=== PATIENT | male | born 2000 | race American Indian/Alaskan Native ===

== ENCOUNTER 2018-02-23 08:52 | Inpatient (IN) | payer OTHER ==
[2018-02-23] MEDS ORDERED: NACL 0.9% 1000 ML 1,000 ML IV ONE ×4 (09:06→15:05)
[2018-02-23 09:28] LABS: Hematocrit 40.8 % (35.5-45.6); Hemoglobin 13.9 gm/dl (11.8-15.2); Mean Corpuscular HGB Conc 34 % (32-34); Mean Corpuscular Hemoglobin 29 pg (28-32); Mean Corpuscular Volume 86 fl (84-94); Platelet Count 319 K/mm3 (140-440); Red Blood Count 4.76 M/mm3 (3.65-5.03); Red Cell Distribution Width 13.8 % (13.2-15.2)
[2018-02-23 09:44] LABS: Alanine Aminotransferase 9 units/L (7-56); Albumin 3.7 g/dL (3.9-5); BUN/Creatinine Ratio 18; Blood Urea Nitrogen 16 mg/dL (9-20); Calcium 9.9 mg/dL (8.4-10.2); Hemolysis Index 7
[2018-02-23] MEDS ORDERED: PEPCID IV ONE (10:24)
[2018-02-23] MEDS ORDERED: DILAUDID IV ONE ×2 (10:24→15:02)
[2018-02-23] MEDS ORDERED: ZOFRAN IV ONE (10:24)
--- NOTE | 2018-02-23 10:26 | Emergency Department Report ---
Blank Doc - Documentation Documentation: Patient is a 17-year-old [place] male who is status 4 days status post appendectomy who states that he's had increased pain. Patient is vomited approximately 10 times over the last 24 hours and has diffuse abdominal pain. Patient's mother states he has had not had a fever has been no diarrhea. On focused physical exam patient does have abdominal tenderness diffusely with some mild guarding. Patient's who removed to a treatment room for IV fluids labs were checked and we will have to repeat the scan the patient.
--- NOTE | 2018-02-23 11:26 | Emergency Department Report ---
ED Abdominal Pain HPI - General Chief Complaint: Abdominal Pain Stated Complaint: POST SURGERY COMPLICATIONS Time Seen by Provider: 02/23/18 10:24 Source: patient Mode of arrival: Ambulatory Limitations: No Limitations - History of Present Illness Initial Comments: This is a 17-year-old male brought by mother nontoxic, well nourished in appearance, no acute signs of distress presents to the ED with c/o of nausea and vomiting and abdominal pain 5 days. Mother stated that patient had surgery 5 days ago for appendectomy. Patient describes abdominal pain as cramping and aching with level of 8/10 diffuse. Patient stated symptoms of vomiting worsened last night. Patient denies chest pain, short of breath, fever , chills, headache, stiff neck, numbness or tingling. Patient denies any diarrhea or constipation. Patient denies any recent travels. Patient denies any allergies or PMH. MD Complaint: abdominal pain -: days(s) (5) Location: diffuse Radiation: none Migration to: no migration Severity: mild Severity scale (0 -10): 8 Quality: cramping, aching Consistency: constant Improves With: nothing Worsens With: nothing Associated Symptoms: nausea, vomiting. denies: diarrhea, fever, chills, constipation, dysuria, hematemesis, hematochezia, melena, hematuria, anorexia, syncope - Related Data Home Medications Medication Instructions Recorded Confirmed Last Taken No Known Home Medications [No 02/19/18 02/23/18 Unknown Reported Home Medications] Allergies Allergy/AdvReac Type Severity Reaction Status Date / Time No Known Allergies Allergy Verified 02/23/18 09:06 ED Review of Systems ROS: Stated complaint: POST SURGERY COMPLICATIONS Other details as noted in HPI Constitutional: denies: chills, fever Eyes: denies: eye pain, eye discharge, vision change ENT: denies: ear pain, throat pain Respiratory: denies: cough, shortness of breath, wheezing Cardiovascular: denies: chest pain, palpitations Endocrine: no symptoms reported Gastrointestinal: abdominal pain, nausea, vomiting. denies: diarrhea, constipation Genitourinary: denies: urgency, dysuria Musculoskeletal: denies: back pain, joint swelling, arthralgia Skin: denies: rash, lesions Neurological: denies: headache, weakness, paresthesias Psychiatric: denies: anxiety, depression Hematological/Lymphatic: denies: easy bleeding, easy bruising ED Past Medical Hx - Past Medical History Previous Medical History?: No - Surgical History Past Surgical History?: Yes Hx Appendectomy: Yes - Social History Smoking Status: Never Smoker - Medications Home Medications: Home Medications Medication Instructions Recorded Confirmed Last Taken Type No Known Home Medications [No 02/19/18 02/23/18 Unknown History Reported Home Medications] ED Physical Exam - General Limitations: No Limitations General appearance: alert, in no apparent distress - Head Head exam: Present: atraumatic, normocephalic - Eye Eye exam: Present: normal appearance Pupils: Present: normal accommodation - ENT ENT exam: Present: normal exam, mucous membranes moist - Neck Neck exam: Present: normal inspection, full ROM. Absent: tenderness, meningismus, lymphadenopathy - Respiratory Respiratory exam: Present: normal lung sounds bilaterally. Absent: respiratory distress, wheezes, rales, rhonchi, stridor, chest wall tenderness, accessory muscle use, decreased breath sounds, prolonged expiratory - Cardiovascular Cardiovascular Exam: Present: regular rate, normal rhythm, normal heart sounds. Absent: irregular rhythm, systolic murmur, diastolic murmur, rubs, gallop - GI/Abdominal GI/Abdominal exam: Present: soft, tenderness (diffuse but mostly in the surgical site area with 3 laparoscopic incisions. No redness, cellulitis, or abscess noted. Well healing. ), normal bowel sounds. Absent: distended, guarding, rebound, rigid, diminished bowel sounds - Expanded GI/Abdominal Exam Expanded GI/Abdominal exam: Absent: psoas sign, obturator sign, heel tap sign, Landers's sign, Rovsing's sign, tenderness at Mcburney's Point, ascites - Rectal Rectal exam: Present: deferred - Extremities Exam Extremities exam: Present: normal inspection, full ROM, normal capillary refill - Back Exam Back exam: Present: normal inspection, full ROM - Neurological Exam Neurological exam: Present: alert, oriented X3, normal gait - Psychiatric Psychiatric exam: Present: normal affect, normal mood - Skin Skin exam: Present: warm, dry, intact, normal color. Absent: rash ED Course Vital Signs 02/23/18 02/23/18 02/23/18 09:02 11:01 12:18 Temperature 98.5 F Pulse Rate 105 H 83 Respiratory 20 18 12 Rate Blood Pressure 148/98 Blood Pressure 149/87 [Left] O2 Sat by Pulse 96 99 Oximetry 08/08/18 08/08/18 16:28 16:30 Temperature 98.9 F Pulse Rate 59 L Respiratory 18 Rate Blood Pressure 142/84 Blood Pressure [Left] O2 Sat by Pulse 100 Oximetry - Reevaluation(s) Reevaluation #1: 02/23/18 11:26 Patient is speaking in full sentences with no signs of distress noted. - Consultations Consultation #1: 02/23/18 11:26 Patient has been consulted with Terry Dhillon about patient history, physical exam, and labs and examined and screened patient and agrees to ED plan. Consultation #2: 02/23/18 14:20 Patient was consulted with Dr. Christiansen (General Surgery) about patient CT results and labs. Mother requested to see another surgeon. As oer Dr. Blair is okay with him. Consultation #3: 02/23/18 14:25 Patient was consulted with Maru Vee (general surgeon) about patient history , physical exam, and CT/Labs findings and accepts patient to her services. Asked to have patient on NPO with NG low suction. Asked to have patient admitted with hospitalist. 02/23/18 14:27 Dr. Mata was consulted and admitted to his services. Bridge orders to 3B surgical floor to be put in. ED Medical Decision Making - Lab Data Result diagrams: 02/23/18 09:11 02/23/18 09:11 - Medical Decision Making This is a 17-year-old male that presents with partial small bowel obstruction and postoperative abscess. Patient is stable and was examined by me and Dr. Lira. CT obtained and dictated by radiologist. Patient is notified of the CT results with no questions noted by the patient. Patient is admitted with Dr. Mata and consulted with Dr. Lemons. Also, Dr. Blair was made aware of the request and patient being in the ED with these findings. Patient was put on NPO and NG low suction intermittent. Patient was started on Zosyn IV. Labs obtained. At time of admission, the patient does not seem toxic or ill in appearance. No acute signs of distress noted. Patient agrees to admission treatment plan of care. No further questions noted by the patient. Critical care attestation.: If time is entered above; I have spent that time in minutes in the direct care of this critically ill patient, excluding procedure time. ED Disposition Clinical Impression: Small bowel obstruction Postoperative abscess Qualifiers: Encounter type: initial encounter Qualified Code(s): T81.4XXA - Infection following a procedure, initial encounter Abdominal pain Qualifiers: Abdominal location: generalized Qualified Code(s): R10.84 - Generalized abdominal pain Nausea and vomiting Qualifiers: Vomiting type: unspecified Vomiting Intractability: non-intractable Qualified Code(s): R11.2 - Nausea with vomiting, unspecified Disposition: DC-09 OP ADMIT IP TO THIS HOSP Is pt being admited?: Yes Condition: Stable
[2018-02-23 11:55] LABS: Basophils % (Manual) 0 % (0.0-1.8); Eosinophils % (Manual) 0 % (0.0-4.3); Platelet Estimate Cons; RBC Morphology Normal; Total Cells Counted 100
--- NOTE | 2018-02-23 14:02 | Cat Scan Report ---
CT ABDOMEN PELVIS WITH CONTRAST: HISTORY: abdominal pain, recent appendectomy. COMPARISON: 02/19/18. TECHNIQUE: Helical CT in 1.25mm intervals following IV contrast. Sagittal and coronal reconstructions. FINDINGS: Lung bases: Normal. Liver: Normal. Biliary system: Slightly dense fluid is present in the gallbladder consistent with vicarious excretion of IV contrast into the biliary system. No obvious gallstones or biliary dilatation. Pancreas: Normal. Spleen: Normal. Kidneys/ureters/bladder: Normal. Adrenal glands: Normal. Aorta: Normal. Intestines: Multiple dilated loops of proximal small bowel have developed since the previous exam. It is unclear if this represents postoperative ileus or partial obstruction. I favor a partial small bowel obstruction. There is a small amount of free air along the anterior abdominal wall which is probably secondary to recent surgery. Appendix: Appendectomy changes. Ascites: There is medium ascites throughout the abdomen which has increased since the previous exam. No oral contrast was administered which limits this exam. There appear to be at least 2 fluid collections in the abdomen. A fluid collection in the right lower quadrant containing gas and debris appears to be separate from the colon measuring 5.6 x 3.9 cm. This is in the vicinity of the recent surgery and may represent a postoperative abscess. There is also a more simple appearing fluid collection between the rectum and the bladder measuring 10 x 7 cm. Adenopathy: None. Musculoskeletal: Normal. IMPRESSION: Recent appendectomy changes are identified. There appear to be at least 2 collections in the right lower quadrant and pelvis as described which may represent postoperative abscesses. Consider repeat examination with oral contrast to further differentiate these structures from bowel loops. Dilated loops of proximal small bowel have developed suggesting partial small bowel obstruction. Ascites.
[2018-02-23] MEDS ORDERED: ZOSYN/NS 4.5GM/100ML 4.5 GM/100 ML VIAL IV SCH (15:00)
--- NOTE | 2018-02-23 15:35 | Consultation ---
History of Present Illness Consult date: 02/23/18 Chief complaint: abd pain, n/v - History of present illness History of present illness: 17-year-old male with past surgical history of laparoscopic appendectomy on by Dr. Blair who presented to the emergency room with complaints of persistent nausea and vomiting for the past 4 days. The patient also complains of right lower quadrant soreness since the day of surgery which has gotten worse. The pain does not radiate, however the patient cannot characterize the pain any further. Per his mother who is at the bedside, the patient has been having nonbilious, non-bloody emesis for the past several days. He tried to eat after surgery, however has not had much of an appetite. He has also been having diarrhea. The patient states his last bowel movement was this morning and was loose. He has been having flatus. No fevers, chills. No chest pain, shortness of breath. He does c/o discomfort on urination. The family requests surgical consultation with alternative physician. NGT placed in ER yielded 800cc of dark green drainage. Pt states his pain has reduced to 3/10 from 8/10 and he feels better after NGT placement. Past History Past Medical History: No medical history Past Surgical History: appendectomy Social history: no significant social history Family history: no significant family history Medications and Allergies Allergies Allergy/AdvReac Type Severity Reaction Status Date / Time No Known Allergies Allergy Verified 02/23/18 09:06 Home Medications Medication Instructions Recorded Confirmed Last Taken Type No Known Home Medications [No 02/19/18 02/19/18 Unknown History Reported Home Medications] Active Meds: Active Medications Piperacillin Sod/Tazobactam Sod (Zosyn/Ns 4.5gm/100ml) 4.5 gm in 100 mls @ 200 mls/hr IV ONCE VIRAJ Sodium Chloride (Nacl 0.9% 1000 Ml) 1,000 mls @ 125 mls/hr IV ONCE ONE Stop: 02/23/18 23:04 Morphine Sulfate (Morphine) 2 mg IV Q4H PRN PRN Reason: Pain, Moderate (4-6) Review of Systems All systems: negative (10 pt ROS performed and negative except for that listed in HPI) Exam Vital Signs Temp Pulse Resp BP Pulse Ox 98.5 F 105 H 20 148/98 96 02/23/18 09:02 02/23/18 09:02 02/23/18 09:02 02/23/18 09:02 02/23/18 09:02 Narrative exam: Gen: AAOx3. appears tired. NAD CV: S1, S2+ Resp: even an unlabored. CTAB, no w/r/r Abd: soft, mildly distended, tympanitic, decreased bowel sounds. Abdominal incisions are c/d/i. Minimal suprapubic discomfort on palpation. Ext: no c/c/e Results - Labs 02/23/18 09:11 02/23/18 09:11 Abnormal lab results 02/23/18 02/23/18 Range/Units 09:11 09:11 Seg Neuts % (Manual) 82.0 H (40.0-70.0) % Lymphocytes % (Manual) 12.0 L (13.4-35.0) % Lymphocytes # (Manual) 1.1 L (1.2-5.4) K/mm3 Sodium 136 L (137-145) mmol/L Chloride 91.4 L (98-107) mmol/L Glucose 155 H (75-100) mg/dL Albumin 3.7 L (3.9-5) g/dL Diabetes panel 02/23/18 Range/Units 09:11 Sodium 136 L (137-145) mmol/L Potassium 4.0 (3.6-5.0) mmol/L Chloride 91.4 L (98-107) mmol/L Carbon Dioxide 30 (22-30) mmol/L BUN 16 (9-20) mg/dL Creatinine 0.9 (0.8-1.5) mg/dL Glucose 155 H (75-100) mg/dL Calcium 9.9 (8.4-10.2) mg/dL AST 13 (5-40) units/L ALT 9 (7-56) units/L Alkaline Phosphatase 73 (35-129) units/L Total Protein 8.1 (6.3-8.2) g/dL Albumin 3.7 L (3.9-5) g/dL Calcium panel 02/23/18 Range/Units 09:11 Calcium 9.9 (8.4-10.2) mg/dL Albumin 3.7 L (3.9-5) g/dL Pituitary panel 02/23/18 Range/Units 09:11 Sodium 136 L (137-145) mmol/L Potassium 4.0 (3.6-5.0) mmol/L Chloride 91.4 L (98-107) mmol/L Carbon Dioxide 30 (22-30) mmol/L BUN 16 (9-20) mg/dL Creatinine 0.9 (0.8-1.5) mg/dL Glucose 155 H (75-100) mg/dL Calcium 9.9 (8.4-10.2) mg/dL Adrenal panel 02/23/18 Range/Units 09:11 Sodium 136 L (137-145) mmol/L Potassium 4.0 (3.6-5.0) mmol/L Chloride 91.4 L (98-107) mmol/L Carbon Dioxide 30 (22-30) mmol/L BUN 16 (9-20) mg/dL Creatinine 0.9 (0.8-1.5) mg/dL Glucose 155 H (75-100) mg/dL Calcium 9.9 (8.4-10.2) mg/dL Total Bilirubin 1.00 (0.1-1.2) mg/dL AST 13 (5-40) units/L ALT 9 (7-56) units/L Alkaline Phosphatase 73 (35-129) units/L Total Protein 8.1 (6.3-8.2) g/dL Albumin 3.7 L (3.9-5) g/dL - Imaging CT scan - abdomen: report reviewed, image reviewed CT scan - pelvis: report reviewed, image reviewed Assessment and Plan 17 yo M with n/v, abd pain s/p laparoscopic appendectomy on 02/19/18, dehydration. CT scan images and radiology report reviewed - pSBO vs ileus. Fluid collections in pelvis and RLQ Plan: 1. admit to hospitalist service 2. NPO, may have a small amount of ice chips, IVF 3. NGT to low continuous suction 4. PPI daily 5. prn pain and nausea control 6. repeat am labs 7. IV zosyn given in ER, do not need to continue antibiotics. Fluid collections are likely post op fluid collection. Patient has not had fevers and has normal WBC count, doubt abscess at this time 8. obstruction series in am 9. DVT ppx Thank you for this consultation, please call with questions or concerns.
[2018-02-23] MEDS ORDERED: ZOFRAN IV PRN ×2 (15:41→23:52)
[2018-02-23 15:56] LABS: Bilirubin,Urine NEG (Negative); Blood,Urine NEG (Negative); Color,Urine Yellow (Yellow); Mucus,Urine FEW /HPF; Urobilinogen,Urine < 2.0 mg/dL (<2.0)
[2018-02-23] MEDS ORDERED: D5W/NS W/KCL 20MEQ 20 MEQ/1,000 ML BAG IV SCH (16:00)
[2018-02-23] MEDS: MORPHINE IV PRN ×3 (18:18→23:56)
--- NOTE | 2018-02-23 23:41 | History and Physical Report ---
History of Present Illness Date of examination: 02/23/18 Date of admission: 02/23/18 15:03 Chief complaint: Chief complaint: Right lower quadrant pain for 4 days Nausea vomiting for 4 days History of present illness: History of present illness: 17-year-old black male with history of recent appendicitis and appendectomy on 02/19/2018 comes in for persistent abdominal pain in the right lower quadrant nausea and vomiting for the past 4 days. Pain is about 8 on a scale of 1-10. Pain is localized to the right lower quadrant. No fever or chills patient had a bowel movement this morning and it was loose. Nasogastric tube placed in the emergency room yielded 800 mL of dark green drainage. Pain improved after nice a gastric tube placement Past History Past Medical History: No medical history Past Surgical History: appendectomy Social history: no significant social history Family history: no significant family history Active Meds: Active Medications Piperacillin Sod/Tazobactam Sod (Zosyn/Ns 4.5gm/100ml) 4.5 gm in 100 mls @ 200 mls/hr IV ONCE VIRAJ Sodium Chloride (Nacl 0.9% 1000 Ml) 1,000 mls @ 125 mls/hr IV ONCE ONE Stop: 02/23/18 23:04 Morphine Sulfate (Morphine) 2 mg IV Q4H PRN PRN Reason: Pain, Moderate (4-6) Review of Systems All systems: negative (10 pt ROS performed and negative except for that listed in HPI) Past History Past Medical History: No medical history Past Surgical History: appendectomy Social history: no significant social history Family history: no significant family history Medications and Allergies Allergies Allergy/AdvReac Type Severity Reaction Status Date / Time No Known Allergies Allergy Verified 02/23/18 09:06 Home Medications Medication Instructions Recorded Confirmed Last Taken Type No Known Home Medications [No 02/19/18 02/23/18 Unknown History Reported Home Medications] Active Meds: Active Medications Piperacillin Sod/Tazobactam Sod (Zosyn/Ns 4.5gm/100ml) 4.5 gm in 100 mls @ 200 mls/hr IV ONCE VIRAJ Potassium Chloride/Dextrose/Sod Cl (D5w/Ns W/Kcl 20meq) 20 meq in 1,000 mls @ 125 mls/hr IV DIRECT VIRAJ Last Admin: 02/23/18 17:40 Dose: 125 mls/hr Morphine Sulfate (Morphine) 2 mg IV Q4H PRN PRN Reason: Pain, Moderate (4-6) Last Admin: 02/23/18 20:51 Dose: 2 mg Ondansetron HCl (Zofran) 4 mg IV Q6H PRN PRN Reason: Nausea And Vomiting Last Admin: 02/23/18 20:53 Dose: 4 mg Pantoprazole Sodium (Protonix) 40 mg IV QDAY VIRAJ Exam - Physical Exam Narrative exam: Patient in slight discomfort - Constitutional Vitals: Temp Pulse Resp BP Pulse Ox 99.0 F 113 H 17 151/91 97 02/23/18 19:43 02/23/18 19:43 02/23/18 19:43 02/23/18 19:43 02/23/18 19:43 General appearance: Present: mild distress, well-nourished - EENT Eyes: Present: PERRL ENT: hearing intact, clear oral mucosa - Neck Neck: Present: supple, normal ROM - Respiratory Respiratory effort: normal Respiratory: bilateral: CTA - Cardiovascular Heart rate: 80 Rhythm: regular Heart Sounds: Present: S1 & S2. Absent: rub, click - Extremities Extremities: no ischemia, pulses intact, pulses symmetrical, No edema Peripheral Pulses: within normal limits - Abdominal General gastrointestinal: Present: soft, non-tender, non-distended, normal bowel sounds Localized gastrointestinal: tender: RLQ, guarding: RLQ Male genitourinary: Present: normal - Rectal Rectal Exam: deferred - Integumentary Integumentary: Present: clear, warm, dry - Musculoskeletal Musculoskeletal: gait normal, strength equal bilaterally - Psychiatric Psychiatric: appropriate mood/affect, intact judgment & insight - Neurologic Neurologic: CNII-XII intact, moves all extremities - Allied Health Allied health notes reviewed: nursing, case management Results - Labs CBC & Chem 7: 02/23/18 09:11 02/23/18 09:11 Labs: Laboratory Last Values WBC 9.4 K/mm3 (4.5-11.0) 02/23/18 09:11 RBC 4.76 M/mm3 (3.65-5.03) 02/23/18 09:11 Hgb 13.9 gm/dl (11.8-15.2) 02/23/18 09:11 Hct 40.8 % (35.5-45.6) 02/23/18 09:11 MCV 86 fl (84-94) 02/23/18 09:11 MCH 29 pg (28-32) 02/23/18 09:11 MCHC 34 % (32-34) 02/23/18 09:11 RDW 13.8 % (13.2-15.2) 02/23/18 09:11 Plt Count 319 K/mm3 (140-440) 02/23/18 09:11 Add Manual Diff Complete 02/23/18 09:11 Total Counted 100 02/23/18 09:11 Seg Neuts % (Manual) 82.0 % (40.0-70.0) H 02/23/18 09:11 Band Neutrophils % 0 % 02/23/18 09:11 Lymphocytes % (Manual) 12.0 % (13.4-35.0) L 02/23/18 09:11 Reactive Lymphs % (Man) 0 % 02/23/18 09:11 Monocytes % (Manual) 6.0 % (0.0-7.3) 02/23/18 09:11 Eosinophils % (Manual) 0 % (0.0-4.3) 02/23/18 09:11 Basophils % (Manual) 0 % (0.0-1.8) 02/23/18 09:11 Metamyelocytes % 0 % 02/23/18 09:11 Myelocytes % 0 % 02/23/18 09:11 Promyelocytes % 0 % 02/23/18 09:11 Blast Cells % 0 % 02/23/18 09:11 Nucleated RBC % Not Reportable 02/23/18 09:11 Seg Neutrophils # Man 7.7 K/mm3 (1.8-7.7) 02/23/18 09:11 Band Neutrophils # 0.0 K/mm3 02/23/18 09:11 Lymphocytes # (Manual) 1.1 K/mm3 (1.2-5.4) L 02/23/18 09:11 Abs React Lymphs (Man) 0.0 K/mm3 02/23/18 09:11 Monocytes # (Manual) 0.6 K/mm3 (0.0-0.8) 02/23/18 09:11 Eosinophils # (Manual) 0.0 K/mm3 (0.0-0.4) 02/23/18 09:11 Basophils # (Manual) 0.0 K/mm3 (0.0-0.1) 02/23/18 09:11 Metamyelocytes # 0.0 K/mm3 02/23/18 09:11 Myelocytes # 0.0 K/mm3 02/23/18 09:11 Promyelocytes # 0.0 K/mm3 02/23/18 09:11 Blast Cells # 0.0 K/mm3 02/23/18 09:11 WBC Morphology Not Reportable 02/23/18 09:11 Hypersegmented Neuts Not Reportable 02/23/18 09:11 Hyposegmented Neuts Not Reportable 02/23/18 09:11 Hypogranular Neuts Not Reportable 02/23/18 09:11 Smudge Cells Not Reportable 02/23/18 09:11 Toxic Granulation Not Reportable 02/23/18 09:11 Toxic Vacuolation Not Reportable 02/23/18 09:11 Dohle Bodies Not Reportable 02/23/18 09:11 Pelger-Huet Anomaly Not Reportable 02/23/18 09:11 Jose Rods Not Reportable 02/23/18 09:11 Platelet Estimate Cons 02/23/18 09:11 Clumped Platelets Not Reportable 02/23/18 09:11 Plt Clumps, EDTA Not Reportable 02/23/18 09:11 Large Platelets Not Reportable 02/23/18 09:11 Giant Platelets Not Reportable 02/23/18 09:11 Platelet Satelliting Not Reportable 02/23/18 09:11 Plt Morphology Comment Not Reportable 02/23/18 09:11 RBC Morphology Normal 02/23/18 09:11 Dimorphic RBCs Not Reportable 02/23/18 09:11 Polychromasia Not Reportable 02/23/18 09:11 Hypochromasia Not Reportable 02/23/18 09:11 Poikilocytosis Not Reportable 02/23/18 09:11 Anisocytosis Not Reportable 02/23/18 09:11 Microcytosis Not Reportable 02/23/18 09:11 Macrocytosis Not Reportable 02/23/18 09:11 Spherocytes Not Reportable 02/23/18 09:11 Pappenheimer Bodies Not Reportable 02/23/18 09:11 Sickle Cells Not Reportable 02/23/18 09:11 Target Cells Not Reportable 02/23/18 09:11 Tear Drop Cells Not Reportable 02/23/18 09:11 Ovalocytes Not Reportable 02/23/18 09:11 Helmet Cells Not Reportable 02/23/18 09:11 [place] Bodies Not Reportable 02/23/18 09:11 Many Rings Not Reportable 02/23/18 09:11 Jossue Cells Not Reportable 02/23/18 09:11 Bite Cells Not Reportable 02/23/18 09:11 Crenated Cell Not Reportable 02/23/18 09:11 Elliptocytes Not Reportable 02/23/18 09:11 Acanthocytes (Spur) Not Reportable 02/23/18 09:11 Rouleaux Not Reportable 02/23/18 09:11 Hemoglobin C Crystals Not Reportable 02/23/18 09:11 Schistocytes Not Reportable 02/23/18 09:11 Malaria parasites Not Reportable 02/23/18 09:11 Demetrio Bodies Not Reportable 02/23/18 09:11 Hem Pathologist Commnt No 02/23/18 09:11 Sodium 136 mmol/L (137-145) L 02/23/18 09:11 Potassium 4.0 mmol/L (3.6-5.0) 02/23/18 09:11 Chloride 91.4 mmol/L (98-107) L 02/23/18 09:11 Carbon Dioxide 30 mmol/L (22-30) 02/23/18 09:11 Anion Gap 19 mmol/L 02/23/18 09:11 BUN 16 mg/dL (9-20) 02/23/18 09:11 Creatinine 0.9 mg/dL (0.8-1.5) 02/23/18 09:11 Estimated GFR > 60 ml/min 02/23/18 09:11 BUN/Creatinine Ratio 18 % 02/23/18 09:11 Glucose 155 mg/dL (75-100) H 02/23/18 09:11 Lactic Acid 1.70 mmol/L (0.7-2.0) 02/23/18 13:38 Calcium 9.9 mg/dL (8.4-10.2) 02/23/18 09:11 Total Bilirubin 1.00 mg/dL (0.1-1.2) 02/23/18 09:11 AST 13 units/L (5-40) 02/23/18 09:11 ALT 9 units/L (7-56) 02/23/18 09:11 Alkaline Phosphatase 73 units/L (35-129) 02/23/18 09:11 Total Protein 8.1 g/dL (6.3-8.2) 02/23/18 09:11 Albumin 3.7 g/dL (3.9-5) L 02/23/18 09:11 Albumin/Globulin Ratio 0.8 % 02/23/18 09:11 Lipase 18 units/L (13-60) 02/23/18 09:11 Urine Color Yellow (Yellow) 02/23/18 15:22 Urine Turbidity Clear (Clear) 02/23/18 15:22 Urine pH 6.0 (5.0-7.0) 02/23/18 15:22 Ur Specific [place] 1.048 (1.003-1.030) H 02/23/18 15:22 Urine Protein 30 mg/dl mg/dL (Negative) 02/23/18 15:22 Urine Glucose (UA) Neg mg/dL (Negative) 02/23/18 15:22 Urine Ketones Neg mg/dL (Negative) 02/23/18 15:22 Urine Blood Neg (Negative) 02/23/18 15:22 Urine Nitrite Neg (Negative) 02/23/18 15:22 Urine Bilirubin Neg (Negative) 02/23/18 15:22 Urine Urobilinogen < 2.0 mg/dL (<2.0) 02/23/18 15:22 Ur Leukocyte Esterase Neg (Negative) 02/23/18 15:22 Urine WBC (Auto) 3.0 /HPF (0.0-6.0) 02/23/18 15:22 Urine RBC (Auto) 5.0 /HPF (0.0-6.0) 02/23/18 15:22 Urine Mucus Few /HPF 02/23/18 15:22 Blood Type O POSITIVE 02/23/18 09:11 Antibody Screen Negative 02/23/18 09:11 - Imaging and Cardiology Imaging and Cardiology: CT abdomen: Recent appendectomy changes are identified 2 collections in the right lower quadrant and pelvis which may represent postoperative abscesses Consider repeat examination with oral contrast to further differentiate the structures from bowel loops Dilated loops of proximal small bowel R Evelinard suggesting partial small bowel obstruction Assessment and Plan Advance Directives: Yes (full code) VTE prophylaxis?: Chemical Plan of care discussed with patient/family: Yes - Patient Problems (1) Postoperative abscess Current Visit: Yes Status: Acute Qualifiers: Encounter type: initial encounter Qualified Code(s): T81.4XXA - Infection following a procedure, initial encounter Plan to address problem: IV Zosyn for now Repeat CAT scan with contrast Surgery consulted (2) Small bowel obstruction Current Visit: Yes Status: Acute Plan to address problem: NG tube for now IV fluids were no (3) DVT prophylaxis Current Visit: Yes Status: Acute Plan to address problem: Lovenox 40 mg subcutaneous daily
[2018-02-23] MEDS ORDERED: SODIUM CHLORIDE FLUSH SYRINGE 10 ML IV PRN (23:52)
[2018-02-23] MEDS ORDERED: TYLENOL PO PRN (23:52)
[2018-02-24] MEDS: ZOSYN/NS 4.5GM/100ML 4.5 GM/100 ML VIAL IV SCH ×4 (00:30→21:30)
[2018-02-24] MEDS: PROTONIX IV SCH ×3 (00:31→21:30)
[2018-02-24] MEDS: DILAUDID IV PRN ×6 (00:35→23:57)
[2018-02-24] MEDS: D5NS 1,000 ML IV SCH ×2 (00:38→20:07)
[2018-02-24] MEDS: ZOFRAN IV PRN ×2 (00:39→10:40)
[2018-02-24] MEDS ORDERED: NACL 0.9% 1,000 ML IR ONE (08:20)
[2018-02-24 08:37] LABS: Hematocrit 35.6 % (35.5-45.6); Mean Corpuscular HGB Conc 34 % (32-34); Mean Corpuscular Hemoglobin 29 pg (28-32); Mean Corpuscular Volume 86 fl (84-94); Platelet Count 274 K/mm3 (140-440); Red Blood Count 4.15 M/mm3 (3.65-5.03); Red Cell Distribution Width 13.8 % (13.2-15.2)
[2018-02-24 08:50] LABS: BUN/Creatinine Ratio 13; Blood Urea Nitrogen 14 mg/dL (9-20); Calcium 8.7 mg/dL (8.4-10.2); Hemolysis Index 3
[2018-02-24] MEDS ORDERED: NACL 0.9% IR SCH (09:00)
[2018-02-24] MEDS ORDERED: LACTATED RINGERS 1,000 ML IV ONE ×2 (10:00→12:30)
[2018-02-24] MEDS ORDERED: PROTONIX IV SCH (10:00)
[2018-02-24 10:31] LABS: Band Neutrophils # (Manual) 1.5 K/mm3; Eosinophils % (Manual) 0 % (0.0-4.3); Total Cells Counted 100
[2018-02-24 10:32] LABS: Anisocytosis 1+; Platelet Estimate Cons
--- NOTE | 2018-02-24 10:45 | Progress Note ---
Assessment and Plan - Patient Problems (1) Abdominal pain Current Visit: Yes Status: Acute Qualifiers: Abdominal location: lower abdomen, unspecified Qualified Code(s): R10.30 - Lower abdominal pain, unspecified Plan to address problem: Patient is stable but showing signs of illness probably secondary to infection. I'm concerned with the increase in the white count and the high fever this morning in addition to his clinical appearance, the fluid collection in pelvis may be an abscess. I spoke with Dr. Song from IR about draining the pelvic collection as well as aspirating if not draining the right lower quadrant collection. Would continue current Abx until culture results are available. Spent a great deal of time talking to the grandmother as well as the mother and patient. The grandmother was very upset about the care her grandson had received. She was upset that he was discharged on the day of surgery. She was upset that he had to be brought back. She is concerned about reddish discoloration in the NG tube. I think her main issue was the immediate discharge after surgery. She made the accusation that he was immediately discharged because he was a black man with no insurance. I explained to her that I was not involved in that part of the care, but I can understand why she would be upset. I explained that we were taking over the care and I'm sorry about the experience that she has had so far. We will work together to get him feeling better. I gave her my business card as well as one to the mother that had my cell phone number on there. I offered that they can call it anytime if you have any issues or concerns. She informed me that she was a prior nurse practitioner. Therefore I asked for her assistance if she should notice some issue or concern, that she let me know about it. She seemed to feel better at this point. During the examination, the grandmother out of the room, the patient told me that he was not comfortable with his grandmother making decisions and wanted to wait until the mother arrived before any final decisions were made. We waited for her to arrive prior to placing an official consult with interventional radiology. He and the mother were in agreement that we should proceed with IR drainage. I have explained the plan as it stands today. I answered all of the questions. They seem to understand his current situation and what the plan is. As he still appears dehydrated, I will bolus him with extra fluid. This was explained to the mother and the patient as well as the grandmother. All were in agreement. I have encouraged him to ambulate. I've given him an incentive spirometer. They also said he knew how to use it. I will reach out to Mr. Ayers (Patient Experience) to let him know what is going on. Time=60min Subjective Date of service: 02/24/18 Patient Reports: Positive: still having pain (especially in lower abdomen that extends to the back. ), no bowel movement, nausea, fever (this AM), other ( Grandmother very upset about the care). Negative: no flatus, vomiting, shortness of breath Objective Vital Signs - 12hr 02/23/18 02/23/18 02/24/18 23:09 23:10 03:29 Temperature 99.7 F H 100.3 F H Pulse Rate 115 H 109 H 104 H Respiratory 17 18 Rate Blood Pressure 154/87 Blood Pressure 146/88 [Left] Blood Pressure [Right] O2 Sat by Pulse 95 95 96 Oximetry 02/24/18 08:00 Temperature 102.3 F H Pulse Rate 118 H Respiratory 20 Rate Blood Pressure Blood Pressure [Left] Blood Pressure 151/91 [Right] O2 Sat by Pulse 94 Oximetry - General physical appearance no distress, other (does appear ill and tired) - Eyes normal occular movement - ENT other (dry mouth and lips) - Respiratory normal respiratory effort, clear to auscultation, other (limited lung expansion) - Abdomen soft, tender (in the lower abdomen and right side. Left side is nontender. No pelvic shake tenderness), bowel sounds hypoactive (minimal ), not distended, guarding, not rigid, surgical scars (C/D/I. minimal skin separation at the RLQ incision site), other (very warm to the touch) - Integumentary no rash, no growths, no abnormal pigmentation - Psychiatric oriented to time, oriented to person, oriented to place, speech is normal, memory intact - Labs 02/24/18 08:21 02/24/18 08:21 Diabetes panel 02/24/18 Range/Units 08:21 Sodium 142 (137-145) mmol/L Potassium 4.0 (3.6-5.0) mmol/L Chloride 102.4 (98-107) mmol/L Carbon Dioxide 26 (22-30) mmol/L BUN 14 (9-20) mg/dL Creatinine 1.1 (0.8-1.5) mg/dL Glucose 146 H (75-100) mg/dL Calcium 8.7 (8.4-10.2) mg/dL Calcium panel 02/24/18 Range/Units 08:21 Calcium 8.7 (8.4-10.2) mg/dL Phosphorus 2.90 (2.5-4.5) mg/dL Pituitary panel 02/24/18 Range/Units 08:21 Sodium 142 (137-145) mmol/L Potassium 4.0 (3.6-5.0) mmol/L Chloride 102.4 (98-107) mmol/L Carbon Dioxide 26 (22-30) mmol/L BUN 14 (9-20) mg/dL Creatinine 1.1 (0.8-1.5) mg/dL Glucose 146 H (75-100) mg/dL Calcium 8.7 (8.4-10.2) mg/dL Adrenal panel 02/24/18 Range/Units 08:21 Sodium 142 (137-145) mmol/L Potassium 4.0 (3.6-5.0) mmol/L Chloride 102.4 (98-107) mmol/L Carbon Dioxide 26 (22-30) mmol/L BUN 14 (9-20) mg/dL Creatinine 1.1 (0.8-1.5) mg/dL Glucose 146 H (75-100) mg/dL Calcium 8.7 (8.4-10.2) mg/dL
[2018-02-24] MEDS: SODIUM CHLORIDE FLUSH SYRINGE 10 ML IV SCH ×2 (10:59→21:30)
[2018-02-24] MEDS ORDERED: TYLENOL ONE (13:56)
[2018-02-24] MEDS ORDERED: XYLOCAINE 1%/ EPI 1:100,000 INFILTRATI ONE (14:04)
[2018-02-24] MEDS ORDERED: VERSED IV ONE ×2 (14:19→14:47)
[2018-02-24] MEDS ORDERED: SUBLIMAZE ONE (14:20)
[2018-02-24] MEDS ORDERED: TYLENOL PO ONE (15:16)
[2018-02-24] MEDS ORDERED: SUBLIMAZE IV ONE (15:47)
--- NOTE | 2018-02-24 16:09 | Post Operative Note ---
Date of procedure: 02/24/18 Pre-op diagnosis: Pelvic fluid collection Post-op diagnosis: same Findings: 260 mL of foul smelling serosanginous fluid (old hematoma) Procedure: CT guided drainage of the pelvic fluid collection with an 8 Fr APD Anesthesia: local (w/ conscious sedation) Surgeon: PERLA LAFLEUR Estimated blood loss: minimal Specimen disposition: to lab Disposition: floor
--- NOTE | 2018-02-24 17:21 | Progress Note ---
Assessment and Plan /Postoperative abscess IV Zosyn for now Surgery consulted s/p CT guided drainage of the pelvic fluid collection today / Small bowel obstruction NG tube for now, IV fluids, monitor BMP Keep NPO / DVT prophylaxis Lovenox 40 mg subcutaneous daily Subjective Date of service: 02/24/18 Interval history: Patient seen and examined s/p CT guided pelvic abscess drainage today c/o abdominal pain Objective - Constitutional Vitals: Vital Signs - 12hr 02/24/18 02/24/18 02/24/18 08:00 08:02 10:40 Temperature 102.3 F H Temperature [ Post-Procedure] Pulse Rate 118 H Pulse Rate [ Intra-Procedure ] Pulse Rate [ Post-Procedure] Pulse Rate [Pre -Procedure] Respiratory 20 20 Rate Respiratory 20 Rate [Abdomen] Respiratory Rate [Intra- Procedure] Respiratory Rate [Post- Procedure] Respiratory Rate [Pre- Procedure] Blood Pressure 151/91 Blood Pressure [Intra- Procedure] Blood Pressure [Post-Procedure ] Blood Pressure [Pre-Procedure] Blood Pressure 151/91 [Right] O2 Sat by Pulse 94 Oximetry O2 Sat by Pulse Oximetry [ Intra-Procedure ] O2 Sat by Pulse Oximetry [Post -Procedure] O2 Sat by Pulse Oximetry [Pre- Procedure] 02/24/18 02/24/18 02/24/18 11:10 13:13 15:28 Temperature 101.6 F H Temperature [ Post-Procedure] Pulse Rate 124 H Pulse Rate [ Intra-Procedure ] Pulse Rate [ Post-Procedure] Pulse Rate [Pre 111 H -Procedure] Respiratory 20 Rate Respiratory Rate [Abdomen] Respiratory Rate [Intra- Procedure] Respiratory Rate [Post- Procedure] Respiratory 25 H Rate [Pre- Procedure] Blood Pressure 143/78 Blood Pressure [Intra- Procedure] Blood Pressure [Post-Procedure ] Blood Pressure 145/73 [Pre-Procedure] Blood Pressure [Right] O2 Sat by Pulse 93 Oximetry O2 Sat by Pulse Oximetry [ Intra-Procedure ] O2 Sat by Pulse Oximetry [Post -Procedure] O2 Sat by Pulse 99 Oximetry [Pre- Procedure] 02/24/18 02/24/18 02/24/18 15:32 15:38 15:43 Temperature Temperature [ Post-Procedure] Pulse Rate Pulse Rate [ 122 H 128 H 119 H Intra-Procedure ] Pulse Rate [ Post-Procedure] Pulse Rate [Pre -Procedure] Respiratory 18 Rate Respiratory Rate [Abdomen] Respiratory 28 H 27 H 22 Rate [Intra- Procedure] Respiratory Rate [Post- Procedure] Respiratory Rate [Pre- Procedure] Blood Pressure Blood Pressure 140/74 142/77 136/69 [Intra- Procedure] Blood Pressure [Post-Procedure ] Blood Pressure [Pre-Procedure] Blood Pressure [Right] O2 Sat by Pulse Oximetry O2 Sat by Pulse 99 96 97 Oximetry [ Intra-Procedure ] O2 Sat by Pulse Oximetry [Post -Procedure] O2 Sat by Pulse Oximetry [Pre- Procedure] 02/24/18 02/24/18 02/24/18 15:48 15:53 15:58 Temperature Temperature [ Post-Procedure] Pulse Rate Pulse Rate [ 122 H 122 H 115 H Intra-Procedure ] Pulse Rate [ Post-Procedure] Pulse Rate [Pre -Procedure] Respiratory Rate Respiratory Rate [Abdomen] Respiratory 23 24 24 Rate [Intra- Procedure] Respiratory Rate [Post- Procedure] Respiratory Rate [Pre- Procedure] Blood Pressure Blood Pressure 142/69 140/73 142/72 [Intra- Procedure] Blood Pressure [Post-Procedure ] Blood Pressure [Pre-Procedure] Blood Pressure [Right] O2 Sat by Pulse Oximetry O2 Sat by Pulse 99 99 99 Oximetry [ Intra-Procedure ] O2 Sat by Pulse Oximetry [Post -Procedure] O2 Sat by Pulse Oximetry [Pre- Procedure] 02/24/18 02/24/18 02/24/18 16:03 16:18 16:30 Temperature Temperature [ 99.7 F H Post-Procedure] Pulse Rate Pulse Rate [ Intra-Procedure ] Pulse Rate [ 116 H 115 H 116 H Post-Procedure] Pulse Rate [Pre -Procedure] Respiratory Rate Respiratory Rate [Abdomen] Respiratory Rate [Intra- Procedure] Respiratory 24 22 21 Rate [Post- Procedure] Respiratory Rate [Pre- Procedure] Blood Pressure Blood Pressure [Intra- Procedure] Blood Pressure 139/77 118/79 143/79 [Post-Procedure ] Blood Pressure [Pre-Procedure] Blood Pressure [Right] O2 Sat by Pulse Oximetry O2 Sat by Pulse Oximetry [ Intra-Procedure ] O2 Sat by Pulse 99 96 96 Oximetry [Post -Procedure] O2 Sat by Pulse Oximetry [Pre- Procedure] 02/24/18 17:00 Temperature Temperature [ Post-Procedure] Pulse Rate Pulse Rate [ Intra-Procedure ] Pulse Rate [ 115 H Post-Procedure] Pulse Rate [Pre -Procedure] Respiratory Rate Respiratory Rate [Abdomen] Respiratory Rate [Intra- Procedure] Respiratory 20 Rate [Post- Procedure] Respiratory Rate [Pre- Procedure] Blood Pressure Blood Pressure [Intra- Procedure] Blood Pressure 165/79 [Post-Procedure ] Blood Pressure [Pre-Procedure] Blood Pressure [Right] O2 Sat by Pulse Oximetry O2 Sat by Pulse Oximetry [ Intra-Procedure ] O2 Sat by Pulse 96 Oximetry [Post -Procedure] O2 Sat by Pulse Oximetry [Pre- Procedure] General appearance: Present: mild distress - EENT Eyes: PERRL, EOM intact ENT: hearing intact, clear oral mucosa Ears: bilateral: normal - Neck Neck: supple, normal ROM - Respiratory Respiratory effort: normal Respiratory: bilateral: CTA - Cardiovascular Rhythm: regular Heart Sounds: Present: S1 & S2. Absent: gallop, rub Extremities: pulses intact, No edema, normal color, Full ROM - Gastrointestinal General gastrointestinal: Present: soft, non-distended, normal bowel sounds, other (drainage in place) - Integumentary Integumentary: clear, warm, dry - Musculoskeletal Musculoskeletal: 1, strength equal bilaterally - Neurologic Neurologic: moves all extremities - Psychiatric Psychiatric: memory intact, appropriate mood/affect, intact judgment & insight - Labs CBC & Chem 7: 02/24/18 08:21 08 08:21 Labs: Abnormal lab results 02/24/18 02/24/18 Range/Units 08:21 08:21 WBC 13.3 H (4.5-11.0) K/mm3 Lymphocytes % (Manual) 7.0 L (13.4-35.0) % Monocytes % (Manual) 11.0 H (0.0-7.3) % Seg Neutrophils # Man 9.0 H (1.8-7.7) K/mm3 Lymphocytes # (Manual) 0.9 L (1.2-5.4) K/mm3 Monocytes # (Manual) 1.5 H (0.0-0.8) K/mm3 Glucose 146 H (75-100) mg/dL - Imaging and cardiology CT scan - abdomen: report reviewed
[2018-02-25] MEDS: DILAUDID IV PRN ×6 (04:08→22:27)
[2018-02-25] MEDS: D5NS 1,000 ML IV SCH (04:15)
[2018-02-25] MEDS: ZOSYN/NS 4.5GM/100ML 4.5 GM/100 ML VIAL IV SCH ×3 (06:08→21:40)
[2018-02-25 07:19] LABS: Basophils % (Auto) 0.1 % (0.0-1.8); Eosinophils # (Auto) 0.3 K/mm3 (0.0-0.4); Eosinophils % (Auto) 1.9 % (0.0-4.3); Hematocrit 31.7 % (35.5-45.6); Hemoglobin 10.5 gm/dl (11.8-15.2); Lymphocytes % (Auto) 6.8 % (13.4-35.0); Mean Corpuscular HGB Conc 33 % (32-34); Mean Corpuscular Hemoglobin 29 pg (28-32); Mean Corpuscular Volume 86 fl (84-94); Monocytes # (Auto) 1.9 K/mm3 (0.0-0.8); Platelet Count 262 K/mm3 (140-440); Red Blood Count 3.68 M/mm3 (3.65-5.03); Red Cell Distribution Width 14.1 % (13.2-15.2)
[2018-02-25 07:40] LABS: BUN/Creatinine Ratio 13; Blood Urea Nitrogen 12 mg/dL (9-20); Calcium 8.4 mg/dL (8.4-10.2); Hemolysis Index 3
[2018-02-25] MEDS: PROTONIX IV SCH ×2 (08:59→21:43)
[2018-02-25] MEDS ORDERED: D5W/0.45% NACL/KCL 20 MEQ 20 MEQ/1,000 ML BAG IV SCH (09:00)
[2018-02-25] MEDS: SODIUM CHLORIDE FLUSH SYRINGE 10 ML IV SCH ×2 (09:02→21:44)
--- NOTE | 2018-02-25 09:36 | Progress Note ---
Assessment and Plan - Patient Problems (1) Abdominal pain Current Visit: Yes Status: Acute Qualifiers: Abdominal location: lower abdomen, unspecified Qualified Code(s): R10.30 - Lower abdominal pain, unspecified Plan to address problem: Pt stable. s/p lap appy (02/19/18 - POD#6); s/p IR drainage of pelvic collection ( 02/24/18 - POD#1) - patient looks better today. Still has some degree of dehydration. Temperature curve is better. Heart rate is better. Based on IR report and microbiology results, patient most likely had been early abscess developing in the pelvis. Re-instructed in IS. Rec: 1) Ambulation 2) May have sips of clears. Cont NGT drainage. 3) Fluid bolus and change fluids to maintenance 4) Cont Abx Time=15min Subjective Date of service: 02/25/18 Patient Reports: Positive: feels better, pain is less (Pressure/pain in pelvic area is much better. No back pain now), flatus (minimal), diarrhea, other (very hungry). Negative: nausea, vomiting Objective Vital Signs - 12hr 02/24/18 02/24/18 02/25/18 22:00 23:57 00:42 Temperature Pulse Rate 114 H Respiratory 18 18 17 Rate Blood Pressure 144/80 Blood Pressure [Right] O2 Sat by Pulse 90 Oximetry 02/25/18 02/25/18 02/25/18 00:49 04:08 04:38 Temperature 99.5 F Pulse Rate Respiratory 18 18 Rate Blood Pressure Blood Pressure [Right] O2 Sat by Pulse Oximetry 02/25/18 02/25/18 02/25/18 04:39 04:40 07:20 Temperature 99.8 F H 98.5 F Pulse Rate 107 H 110 H 105 H Respiratory 17 20 Rate Blood Pressure 139/86 Blood Pressure 144/87 [Right] O2 Sat by Pulse 89 89 94 Oximetry - General physical appearance no distress, no pain, other (looks better and smiling today) - Eyes normal occular movement - Respiratory normal respiratory effort, clear to auscultation, other (shallow breathing - but appears comfortable) - Abdomen soft, not tender, bowel sounds hypoactive, not distended, not guarding, not rigid, surgical scars (C/D/I) - Integumentary no rash, no growths, no abnormal pigmentation - Neurologic normal coordination, normal sensation - Psychiatric oriented to time, oriented to person, oriented to place, speech is normal, memory intact - Labs 02/25/18 07:07 02/25/18 07:07 Diabetes panel 02/25/18 Range/Units 07:07 Sodium 145 (137-145) mmol/L Potassium 3.9 (3.6-5.0) mmol/L Chloride 107.8 H (98-107) mmol/L Carbon Dioxide 26 (22-30) mmol/L BUN 12 (9-20) mg/dL Creatinine 0.9 (0.8-1.5) mg/dL Glucose 130 H (75-100) mg/dL Calcium 8.4 (8.4-10.2) mg/dL Calcium panel 02/25/18 Range/Units 07:07 Calcium 8.4 (8.4-10.2) mg/dL Pituitary panel 02/25/18 Range/Units 07:07 Sodium 145 (137-145) mmol/L Potassium 3.9 (3.6-5.0) mmol/L Chloride 107.8 H (98-107) mmol/L Carbon Dioxide 26 (22-30) mmol/L BUN 12 (9-20) mg/dL Creatinine 0.9 (0.8-1.5) mg/dL Glucose 130 H (75-100) mg/dL Calcium 8.4 (8.4-10.2) mg/dL Adrenal panel 02/25/18 Range/Units 07:07 Sodium 145 (137-145) mmol/L Potassium 3.9 (3.6-5.0) mmol/L Chloride 107.8 H (98-107) mmol/L Carbon Dioxide 26 (22-30) mmol/L BUN 12 (9-20) mg/dL Creatinine 0.9 (0.8-1.5) mg/dL Glucose 130 H (75-100) mg/dL Calcium 8.4 (8.4-10.2) mg/dL
[2018-02-25] MEDS ORDERED: LACTATED RINGERS 1,000 ML IV ONE (10:00)
--- NOTE | 2018-02-25 14:47 | Event Note ---
Date: 02/25/18 routine check - Pt reports that he walked in the halls. Tolerated clears. Has been off suction for 2-3 hours without any issues. Feels well. - Leave NGT off suction unless symptomatic. - sips of clears. - continue ambulating
--- NOTE | 2018-02-25 14:54 | Progress Note ---
Assessment and Plan Sepsis due to intraabdominal abscess: cont abx, follow cx /Postoperative abscess IV Zosyn for now Surgery consulted s/p CT guided drainage of the pelvic fluid collection 02/24/18 / Small bowel obstruction off NG tube suction for now, IV fluids, monitor BMP allow sips of clear liquid / DVT prophylaxis Lovenox 40 mg subcutaneous daily Microbiology 02/23/18 13:38 Peripheral/Venous Blood Culture - Preliminary NO GROWTH AFTER 48 HOURS 02/23/18 13:38 Peripheral/Venous Blood Culture - Preliminary NO GROWTH AFTER 48 HOURS 02/24/18 16:15 Abdomen Surgical Culture - Preliminary Gram Negative Joni Subjective Date of service: 02/25/18 Interval history: Patient seen and examined s/p CT guided pelvic abscess drainage yesterday states abdominal pain improved Objective - Exam Narrative Exam: General appearance: Present: mild distress - EENT Eyes: PERRL, EOM intact ENT: hearing intact, clear oral mucosa Ears: bilateral: normal - Neck Neck: supple, normal ROM - Respiratory Respiratory effort: normal Respiratory: bilateral: CTA - Cardiovascular Rhythm: regular Heart Sounds: Present: S1 & S2. Absent: gallop, rub Extremities: pulses intact, No edema, normal color, Full ROM - Gastrointestinal General gastrointestinal: Present: soft, non-distended, normal bowel sounds, other (drainage in place) - Integumentary Integumentary: clear, warm, dry - Musculoskeletal Musculoskeletal: 1, strength equal bilaterally - Neurologic Neurologic: moves all extremities - Psychiatric Psychiatric: memory intact, appropriate mood/affect, intact judgment & insight - Constitutional Vitals: Vital Signs - 12hr 02/25/18 02/25/18 02/25/18 04:08 04:38 04:39 Temperature 99.8 F H Pulse Rate 107 H Respiratory 18 18 17 Rate Blood Pressure 139/86 Blood Pressure [Right] O2 Sat by Pulse 89 Oximetry 02/25/18 02/25/18 02/25/18 04:40 07:20 10:00 Temperature 98.5 F Pulse Rate 110 H 105 H Respiratory 20 Rate Blood Pressure Blood Pressure 144/87 [Right] O2 Sat by Pulse 89 94 97 Oximetry 02/25/18 12:05 Temperature 99.8 F H Pulse Rate 102 H Respiratory 20 Rate Blood Pressure Blood Pressure 143/71 [Right] O2 Sat by Pulse 99 Oximetry - Labs CBC & Chem 7: 02/25/18 07:07 02/25/18 07:07 Labs: Abnormal lab results 02/25/18 02/25/18 Range/Units 07:07 07:07 WBC 15.5 H (4.5-11.0) K/mm3 Hgb 10.5 L (11.8-15.2) gm/dl Hct 31.7 L (35.5-45.6) % Lymph % (Auto) 6.8 L (13.4-35.0) % Hall % (Auto) 12.0 H (0.0-7.3) % Lymph # 1.0 L (1.2-5.4) K/mm3 Hall # 1.9 H (0.0-0.8) K/mm3 Seg Neutrophils % 79.2 H (40.0-70.0) % Seg Neutrophils # 12.3 H (1.8-7.7) K/mm3 Chloride 107.8 H (98-107) mmol/L Glucose 130 H (75-100) mg/dL
[2018-02-26] MEDS: DILAUDID IV PRN ×5 (01:22→20:22)
[2018-02-26 05:05] LABS: Hematocrit 30.8 % (35.5-45.6); Hemoglobin 10.2 gm/dl (11.8-15.2); Mean Corpuscular HGB Conc 33 % (32-34); Mean Corpuscular Hemoglobin 28 pg (28-32); Mean Corpuscular Volume 86 fl (84-94); Platelet Count 283 K/mm3 (140-440); Red Blood Count 3.58 M/mm3 (3.65-5.03); Red Cell Distribution Width 14.3 % (13.2-15.2)
[2018-02-26 05:20] LABS: BUN/Creatinine Ratio 13; Blood Urea Nitrogen 12 mg/dL (9-20); Calcium 8.8 mg/dL (8.4-10.2); Hemolysis Index 0
[2018-02-26] MEDS: ZOSYN/NS 4.5GM/100ML 4.5 GM/100 ML VIAL IV SCH ×2 (05:56→14:38)
[2018-02-26 07:50] LABS: Band Neutrophils # (Manual) 2.6 K/mm3; Basophils % (Manual) 0 % (0.0-1.8); Total Cells Counted 100
[2018-02-26 07:51] LABS: Anisocytosis Few; Hypochromasia 1+; Ovalocytes Few
[2018-02-26] MEDS: PROTONIX IV SCH (10:34)
[2018-02-26] MEDS: SODIUM CHLORIDE FLUSH SYRINGE 10 ML IV SCH (10:36)
--- NOTE | 2018-02-26 12:37 | Progress Note ---
Assessment and Plan - Patient Problems (1) Abdominal pain Current Visit: Yes Status: Acute Qualifiers: Abdominal location: lower abdomen, unspecified Qualified Code(s): R10.30 - Lower abdominal pain, unspecified Plan to address problem: Secondary to abscess status post surgical correction for appendicitis. (2) Nausea and vomiting Current Visit: Yes Status: Acute Qualifiers: Vomiting type: unspecified Vomiting Intractability: non-intractable Qualified Code(s): R11.2 - Nausea with vomiting, unspecified (3) Postoperative abscess Current Visit: Yes Status: Acute Qualifiers: Encounter type: initial encounter Qualified Code(s): T81.4XXA - Infection following a procedure, initial encounter Plan to address problem: Postoperative abscess sensitive to ESBL patient currently on Rocephin and is sensitive to zosyn. Will place patient on isolation contact at this time. Subjective Date of service: 02/26/18 Principal diagnosis: intra-abdominal abscess Interval history: Patient Hospital course complicated by postsurgical complications. Has NG tube in the nose currently not using it. Patient able to take sips of water and drink juice. He isn't eating candy as well. Had increased gas and small amount of bowel movement last night over the p.m. aspirin course also complicated by the recent microbiology findings of ESBL however is still sensitive to Rocephin. Objective - Constitutional Vitals: Vital Signs - 12hr 02/26/18 02/26/18 02/26/18 01:22 04:32 04:46 Temperature 99.6 F Pulse Rate 107 H Respiratory 18 20 20 Rate Blood Pressure 143/89 Blood Pressure [Right] O2 Sat by Pulse 93 Oximetry 02/26/18 02/26/18 02/26/18 07:17 08:12 08:37 Temperature 99.4 F 99.4 F Pulse Rate 93 H Respiratory 20 20 18 Rate Blood Pressure 136/92 Blood Pressure 139/82 [Right] O2 Sat by Pulse 100 Oximetry 02/26/18 02/26/18 08:42 09:03 Temperature Pulse Rate Respiratory 18 Rate Blood Pressure Blood Pressure [Right] O2 Sat by Pulse 95 Oximetry General appearance: Present: no acute distress, well-nourished, other (NG tube.) - EENT Eyes: PERRL, EOM intact ENT: hearing intact, clear oral mucosa Ears: bilateral: normal - Neck Neck: supple, normal ROM - Respiratory Respiratory effort: normal Respiratory: bilateral: CTA - Breasts Breasts: normal - Cardiovascular Rhythm: regular Heart Sounds: Present: S1 & S2. Absent: gallop, rub Extremities: pulses intact, No edema, normal color, Full ROM - Gastrointestinal General gastrointestinal: Present: soft, non-tender, non-distended, normal bowel sounds - Genitourinary Male genitourinary: normal - Integumentary Integumentary: clear, warm, dry - Musculoskeletal Musculoskeletal: 1, strength equal bilaterally - Neurologic Neurologic: moves all extremities - Psychiatric Psychiatric: memory intact, appropriate mood/affect, intact judgment & insight - Labs CBC & Chem 7: 02/26/18 04:16 02/26/18 04:16 Labs: Abnormal lab results 02/26/18 02/26/18 Range/Units 04:16 04:16 WBC 21.7 H (4.5-11.0) K/mm3 RBC 3.58 L (3.65-5.03) M/mm3 Hgb 10.2 L (11.8-15.2) gm/dl Hct 30.8 L (35.5-45.6) % Lymphocytes % (Manual) 11.0 L (13.4-35.0) % Eosinophils % (Manual) 5.0 H (0.0-4.3) % Seg Neutrophils # Man 15.2 H (1.8-7.7) K/mm3 Eosinophils # (Manual) 1.1 H (0.0-0.4) K/mm3 Glucose 108 H (75-100) mg/dL
[2018-02-26] MEDS ORDERED: NORCO 5/325 PO PRN (13:55)
--- NOTE | 2018-02-26 14:44 | Progress Note ---
Assessment and Plan - Patient Problems (1) Abdominal pain Current Visit: Yes Status: Acute Qualifiers: Abdominal location: lower abdomen, unspecified Qualified Code(s): R10.30 - Lower abdominal pain, unspecified Plan to address problem: Pt stable. s/p lap appy (02/19/18 - POD#7); s/p IR drainage of pelvic collection ( 02/24/18 - POD#2) - patient looks and feels better today. He feels better even compared to yesterday. HR is better. He is afebrile since the drainage procedure. Bowel movements are daily and getting back to normal. It was more solid this AM. Passing flatus. He is very hungry. Mom agrees that he looks much better. The only thing that concerns me is the increased WBC. Part of it may be secondary to the stress from last night. He did state that he was still upset when the blood was drawn at 4am. Regardless, have to consider possibility that he is not responding completely to the zosyn. Therefore, will repeat CBC in Am. If remaining at current level or going higher, will 1) add 2nd Abx, 2) re-CT abd /pelvis with contrast, 3) consider the possibility that other procedures may be needed. This was explained to the mother when the patient was in the bathroom. She acknowledged understanding. Rec: 1) Ambulation 2) Remove NGT 3) Regular diet 4) lab in AM Time=20min Subjective Date of service: 02/26/18 Patient Reports: Positive: feels better, tolerating liquids well, flatus, bowel movement, afebrile, other (very hungry). Negative: nausea, vomiting, shortness of breath Objective Vital Signs - 12hr 02/26/18 02/26/18 02/26/18 04:32 04:46 07:17 Temperature 99.6 F 99.4 F Pulse Rate 107 H Respiratory 20 20 20 Rate Blood Pressure 143/89 136/92 Blood Pressure [Right] O2 Sat by Pulse 93 Oximetry 02/26/18 02/26/18 02/26/18 08:12 08:37 08:42 Temperature 99.4 F Pulse Rate 93 H Respiratory 20 18 Rate Blood Pressure Blood Pressure 139/82 [Right] O2 Sat by Pulse 100 95 Oximetry 02/26/18 02/26/18 09:03 12:00 Temperature 99.6 F Pulse Rate 98 H Respiratory 18 16 Rate Blood Pressure Blood Pressure 126/70 [Right] O2 Sat by Pulse 98 Oximetry - General physical appearance no distress, no pain, other (looks better) - Eyes normal occular movement - Respiratory normal expansion, normal respiratory effort, clear to auscultation - Abdomen soft, tender (very minimal over RLQ incision and pelvic area. Much less than initial exam. ), bowel sounds normal, not distended, not guarding, not rigid, surgical scars (C/D/I), other (No pelvic shake tenderness) - Integumentary no rash, no growths, no abnormal pigmentation - Psychiatric oriented to time, oriented to person, oriented to place, speech is normal, memory intact - Labs 02/26/18 04:16 02/26/18 04:16 Diabetes panel 02/26/18 Range/Units 04:16 Sodium 142 (137-145) mmol/L Potassium 3.8 (3.6-5.0) mmol/L Chloride 103.2 (98-107) mmol/L Carbon Dioxide 26 (22-30) mmol/L BUN 12 (9-20) mg/dL Creatinine 0.9 (0.8-1.5) mg/dL Glucose 108 H (75-100) mg/dL Calcium 8.8 (8.4-10.2) mg/dL Calcium panel 02/26/18 Range/Units 04:16 Calcium 8.8 (8.4-10.2) mg/dL Pituitary panel 02/26/18 Range/Units 04:16 Sodium 142 (137-145) mmol/L Potassium 3.8 (3.6-5.0) mmol/L Chloride 103.2 (98-107) mmol/L Carbon Dioxide 26 (22-30) mmol/L BUN 12 (9-20) mg/dL Creatinine 0.9 (0.8-1.5) mg/dL Glucose 108 H (75-100) mg/dL Calcium 8.8 (8.4-10.2) mg/dL Adrenal panel 02/26/18 Range/Units 04:16 Sodium 142 (137-145) mmol/L Potassium 3.8 (3.6-5.0) mmol/L Chloride 103.2 (98-107) mmol/L Carbon Dioxide 26 (22-30) mmol/L BUN 12 (9-20) mg/dL Creatinine 0.9 (0.8-1.5) mg/dL Glucose 108 H (75-100) mg/dL Calcium 8.8 (8.4-10.2) mg/dL
[2018-02-26] MEDS: TORADOL IV SCH (19:23)
[2018-02-27] MEDS: ZOSYN/NS 4.5GM/100ML 4.5 GM/100 ML VIAL IV SCH ×4 (00:13→22:44)
[2018-02-27] MEDS: SODIUM CHLORIDE FLUSH SYRINGE 10 ML IV SCH ×2 (00:15→12:16)
[2018-02-27] MEDS: TORADOL IV SCH ×4 (00:17→18:32)
[2018-02-27 12:09] LABS: Hematocrit 29.8 % (35.5-45.6); Hemoglobin 10.1 gm/dl (11.8-15.2); Mean Corpuscular HGB Conc 34 % (32-34); Mean Corpuscular Hemoglobin 29 pg (28-32); Mean Corpuscular Volume 85 fl (84-94); Platelet Count 328 K/mm3 (140-440); Red Blood Count 3.51 M/mm3 (3.65-5.03); Red Cell Distribution Width 14.4 % (13.2-15.2)
--- NOTE | 2018-02-27 12:25 | Progress Note ---
<ADIS FLOOD - Last Filed: 02/27/18 13:27> Assessment and Plan Assessment and plan: 1. Sepsis due to intraabdominal abscess cont abx, follow cx WBC remains elevated Consults ID for f/u per surgery CT of the abdomen and pelvis for f/u 2. Postoperative abscess IV Zosyn for now Surgery consulted s/p CT guided drainage of the pelvic fluid collection 02/24/18 3. Small bowel obstruction (improving) off NG tube suction, IV fluids, monitor BMP Diet advance to solid, tolerated without n/v 4. Leukocytosis Monitor CBC in am Consults ID for f/u per surgery CT of the abdomen and pelvis for f/u Continue to follow progress History Interval history: Pt states that he is feeling better today, he started diet and tolerated well. Hospitalist Physical - Physical exam Narrative exam: Pt is sitting up in chair, appears comfortable, denies any pain or discomfort for now, reports improvement in his condition, afebrile. - Constitutional Vitals: Temp Pulse Resp BP Pulse Ox 98.7 F 78 18 119/72 98 02/27/18 11:14 02/27/18 11:14 02/27/18 11:14 02/27/18 11:14 02/27/18 11:14 General appearance: Present: no acute distress, well-nourished, other (NG tube.) - EENT Eyes: Present: EOM intact - Respiratory Respiratory effort: normal - Cardiovascular Rhythm: regular - Extremities Extremities: No edema - Abdominal General gastrointestinal: non-distended, other (mild tenderness, ) - Integumentary Integumentary: Present: warm, dry - Psychiatric Psychiatric: cooperative Results - Labs CBC & Chem 7: 02/27/18 11:45 02/26/18 04:16 Labs: Laboratory Last Values WBC 23.2 K/mm3 (4.5-11.0) H 02/27/18 11:45 RBC 3.51 M/mm3 (3.65-5.03) L 02/27/18 11:45 Hgb 10.1 gm/dl (11.8-15.2) L 02/27/18 11:45 Hct 29.8 % (35.5-45.6) L 02/27/18 11:45 MCV 85 fl (84-94) 02/27/18 11:45 MCH 29 pg (28-32) 02/27/18 11:45 MCHC 34 % (32-34) 02/27/18 11:45 RDW 14.4 % (13.2-15.2) 02/27/18 11:45 Plt Count 328 K/mm3 (140-440) 02/27/18 11:45 Lymph % (Auto) 6.8 % (13.4-35.0) L 02/25/18 07:07 [place] % (Auto) 12.0 % (0.0-7.3) H 02/25/18 07:07 Eos % (Auto) 1.9 % (0.0-4.3) 02/25/18 07:07 Baso % (Auto) 0.1 % (0.0-1.8) 02/25/18 07:07 Lymph # 1.0 K/mm3 (1.2-5.4) L 02/25/18 07:07 [place] # 1.9 K/mm3 (0.0-0.8) H 02/25/18 07:07 Eos # 0.3 K/mm3 (0.0-0.4) 02/25/18 07:07 Baso # 0.0 K/mm3 (0.0-0.1) 02/25/18 07:07 Add Manual Diff Complete 02/26/18 04:16 Total Counted 100 02/26/18 04:16 Seg Neutrophils % 79.2 % (40.0-70.0) H 02/25/18 07:07 Seg Neuts % (Manual) 70.0 % (40.0-70.0) 02/26/18 04:16 Band Neutrophils % 12.0 % 02/26/18 04:16 Lymphocytes % (Manual) 11.0 % (13.4-35.0) L 02/26/18 04:16 Reactive Lymphs % (Man) 0 % 02/26/18 04:16 Monocytes % (Manual) 2.0 % (0.0-7.3) 02/26/18 04:16 Eosinophils % (Manual) 5.0 % (0.0-4.3) H 02/26/18 04:16 Basophils % (Manual) 0 % (0.0-1.8) 02/26/18 04:16 Metamyelocytes % 0 % 02/26/18 04:16 Myelocytes % 0 % 02/26/18 04:16 Promyelocytes % 0 % 02/26/18 04:16 Blast Cells % 0 % 02/26/18 04:16 Nucleated RBC % Not Reportable 02/26/18 04:16 Seg Neutrophils # 12.3 K/mm3 (1.8-7.7) H 02/25/18 07:07 Seg Neutrophils # Man 15.2 K/mm3 (1.8-7.7) H 02/26/18 04:16 Band Neutrophils # 2.6 K/mm3 02/26/18 04:16 Lymphocytes # (Manual) 2.4 K/mm3 (1.2-5.4) 02/26/18 04:16 Abs React Lymphs (Man) 0.0 K/mm3 02/26/18 04:16 Monocytes # (Manual) 0.4 K/mm3 (0.0-0.8) 02/26/18 04:16 Eosinophils # (Manual) 1.1 K/mm3 (0.0-0.4) H 02/26/18 04:16 Basophils # (Manual) 0.0 K/mm3 (0.0-0.1) 02/26/18 04:16 Metamyelocytes # 0.0 K/mm3 02/26/18 04:16 Myelocytes # 0.0 K/mm3 02/26/18 04:16 Promyelocytes # 0.0 K/mm3 02/26/18 04:16 Blast Cells # 0.0 K/mm3 02/26/18 04:16 WBC Morphology Not Reportable 02/26/18 04:16 Hypersegmented Neuts Not Reportable 02/26/18 04:16 Hyposegmented Neuts Not Reportable 02/26/18 04:16 Hypogranular Neuts Not Reportable 02/26/18 04:16 Smudge Cells Not Reportable 02/26/18 04:16 Toxic Granulation Not Reportable 02/26/18 04:16 Toxic Vacuolation Not Reportable 02/26/18 04:16 Dohle Bodies Not Reportable 02/26/18 04:16 Pelger-Huet Anomaly Not Reportable 02/26/18 04:16 Jose Rods Not Reportable 02/26/18 04:16 Platelet Estimate Not Reportable 02/26/18 04:16 Clumped Platelets Not Reportable 02/26/18 04:16 Plt Clumps, EDTA Not Reportable 02/26/18 04:16 Large Platelets Not Reportable 02/26/18 04:16 Giant Platelets Not Reportable 02/26/18 04:16 Platelet Satelliting Not Reportable 02/26/18 04:16 Plt Morphology Comment Not Reportable 02/26/18 04:16 RBC Morphology Not Reportable 02/26/18 04:16 Dimorphic RBCs Not Reportable 02/26/18 04:16 Polychromasia Not Reportable 02/26/18 04:16 Hypochromasia 1+ 02/26/18 04:16 Poikilocytosis Not Reportable 02/26/18 04:16 Anisocytosis Few 02/26/18 04:16 Microcytosis Not Reportable 02/26/18 04:16 Macrocytosis Not Reportable 02/26/18 04:16 Spherocytes Not Reportable 02/26/18 04:16 Pappenheimer Bodies Not Reportable 02/26/18 04:16 Sickle Cells Not Reportable 02/26/18 04:16 Target Cells Not Reportable 02/26/18 04:16 Tear Drop Cells Not Reportable 02/26/18 04:16 Ovalocytes Few 02/26/18 04:16 Helmet Cells Not Reportable 02/26/18 04:16 [place] Bodies Not Reportable 02/26/18 04:16 [place] Rings Not Reportable 02/26/18 04:16 [place]ossue Cells Not Reportable 02/26/18 04:16 Bite Cells Not Reportable 02/26/18 04:16 Crenated Cell Not Reportable 02/26/18 04:16 Elliptocytes Not Reportable 02/26/18 04:16 Acanthocytes (Spur) Not Reportable 02/26/18 04:16 Rouleaux Not Reportable 02/26/18 04:16 Hemoglobin C Crystals Not Reportable 02/26/18 04:16 Schistocytes Not Reportable 02/26/18 04:16 Malaria parasites Not Reportable 02/26/18 04:16 Demetrio Bodies Not Reportable 02/26/18 04:16 Hem Pathologist Commnt No 02/26/18 04:16 Sodium 142 mmol/L (137-145) 02/26/18 04:16 Potassium 3.8 mmol/L (3.6-5.0) 02/26/18 04:16 Chloride 103.2 mmol/L (98-107) 02/26/18 04:16 Carbon Dioxide 26 mmol/L (22-30) 02/26/18 04:16 Anion Gap 17 mmol/L 02/26/18 04:16 BUN 12 mg/dL (9-20) 02/26/18 04:16 Creatinine 0.9 mg/dL (0.8-1.5) 02/26/18 04:16 Estimated GFR > 60 ml/min 02/26/18 04:16 BUN/Creatinine Ratio 13 % 02/26/18 04:16 Glucose 108 mg/dL (75-100) H 02/26/18 04:16 Lactic Acid 1.70 mmol/L (0.7-2.0) 02/23/18 13:38 Calcium 8.8 mg/dL (8.4-10.2) 02/26/18 04:16 Phosphorus 2.90 mg/dL (2.5-4.5) 02/24/18 08:21 Magnesium 1.90 mg/dL (1.7-2.3) 02/24/18 08:21 Total Bilirubin 1.00 mg/dL (0.1-1.2) 02/23/18 09:11 AST 13 units/L (5-40) 02/23/18 09:11 ALT 9 units/L (7-56) 02/23/18 09:11 Alkaline Phosphatase 73 units/L (35-129) 02/23/18 09:11 Total Protein 8.1 g/dL (6.3-8.2) 02/23/18 09:11 Albumin 3.7 g/dL (3.9-5) L 02/23/18 09:11 Albumin/Globulin Ratio 0.8 % 02/23/18 09:11 Lipase 18 units/L (13-60) 02/23/18 09:11 Urine Color Yellow (Yellow) 02/23/18 15:22 Urine Turbidity Clear (Clear) 02/23/18 15:22 Urine pH 6.0 (5.0-7.0) 02/23/18 15:22 Ur Specific Howe 1.048 (1.003-1.030) H 02/23/18 15:22 Urine Protein 30 mg/dl mg/dL (Negative) 02/23/18 15:22 Urine Glucose (UA) Neg mg/dL (Negative) 02/23/18 15:22 Urine Ketones Neg mg/dL (Negative) 02/23/18 15:22 Urine Blood Neg (Negative) 02/23/18 15:22 Urine Nitrite Neg (Negative) 02/23/18 15:22 Urine Bilirubin Neg (Negative) 02/23/18 15:22 Urine Urobilinogen < 2.0 mg/dL (<2.0) 02/23/18 15:22 Ur Leukocyte Esterase Neg (Negative) 02/23/18 15:22 Urine WBC (Auto) 3.0 /HPF (0.0-6.0) 02/23/18 15:22 Urine RBC (Auto) 5.0 /HPF (0.0-6.0) 02/23/18 15:22 Urine Mucus Few /HPF 02/23/18 15:22 Blood Type O POSITIVE 02/23/18 09:11 Antibody Screen Negative 02/23/18 09:11 <GHADA LOVE R - Last Filed: 02/27/18 14:58> Assessment and Plan Assessment and plan: I saw and evaluated the patient. I agree with the findings and the plan of care as documented in the Nurse Practitioner's~note, with the following corrections and additions. Consulted ID today and ordered repeat CT for persistent high WBC Hospitalist Physical - Constitutional Vitals: Temp Pulse Resp BP Pulse Ox 98.7 F 78 18 119/72 98 02/27/18 11:14 02/27/18 11:14 02/27/18 11:14 02/27/18 11:14 02/27/18 11:14 Results - Labs CBC & Chem 7: 02/27/18 11:45 02/26/18 04:16 Labs: Laboratory Last Values WBC 23.2 K/mm3 (4.5-11.0) H 02/27/18 11:45 RBC 3.51 M/mm3 (3.65-5.03) L 02/27/18 11:45 Hgb 10.1 gm/dl (11.8-15.2) L 02/27/18 11:45 Hct 29.8 % (35.5-45.6) L 02/27/18 11:45 MCV 85 fl (84-94) 02/27/18 11:45 MCH 29 pg (28-32) 02/27/18 11:45 MCHC 34 % (32-34) 02/27/18 11:45 RDW 14.4 % (13.2-15.2) 02/27/18 11:45 Plt Count 328 K/mm3 (140-440) 02/27/18 11:45 Lymph % (Auto) 6.8 % (13.4-35.0) L 02/25/18 07:07 [place] % (Auto) 12.0 % (0.0-7.3) H 02/25/18 07:07 Eos % (Auto) 1.9 % (0.0-4.3) 02/25/18 07:07 Baso % (Auto) 0.1 % (0.0-1.8) 02/25/18 07:07 Lymph # 1.0 K/mm3 (1.2-5.4) L 02/25/18 07:07 [place] # 1.9 K/mm3 (0.0-0.8) H 02/25/18 07:07 Eos # 0.3 K/mm3 (0.0-0.4) 02/25/18 07:07 Baso # 0.0 K/mm3 (0.0-0.1) 02/25/18 07:07 Add Manual Diff Complete 02/27/18 11:45 Total Counted 200 02/27/18 11:45 Seg Neutrophils % 79.2 % (40.0-70.0) H 02/25/18 07:07 Seg Neuts % (Manual) 90.0 % (40.0-70.0) H 02/27/18 11:45 Band Neutrophils % 0 % 02/27/18 11:45 Lymphocytes % (Manual) 4.0 % (13.4-35.0) L 02/27/18 11:45 Reactive Lymphs % (Man) 0 % 02/27/18 11:45 Monocytes % (Manual) 5.5 % (0.0-7.3) 02/27/18 11:45 Eosinophils % (Manual) 0.5 % (0.0-4.3) 02/27/18 11:45 Basophils % (Manual) 0 % (0.0-1.8) 02/27/18 11:45 Metamyelocytes % 0 % 02/27/18 11:45 Myelocytes % 0 % 02/27/18 11:45 Promyelocytes % 0 % 02/27/18 11:45 Blast Cells % 0 % 02/27/18 11:45 Nucleated RBC % Not Reportable 02/27/18 11:45 Seg Neutrophils # 12.3 K/mm3 (1.8-7.7) H 02/25/18 07:07 Seg Neutrophils # Man 20.9 K/mm3 (1.8-7.7) H 02/27/18 11:45 Band Neutrophils # 0.0 K/mm3 02/27/18 11:45 Lymphocytes # (Manual) 0.9 K/mm3 (1.2-5.4) L 02/27/18 11:45 Abs React Lymphs (Man) 0.0 K/mm3 02/27/18 11:45 Monocytes # (Manual) 1.3 K/mm3 (0.0-0.8) H 02/27/18 11:45 Eosinophils # (Manual) 0.1 K/mm3 (0.0-0.4) 02/27/18 11:45 Basophils # (Manual) 0.0 K/mm3 (0.0-0.1) 02/27/18 11:45 Metamyelocytes # 0.0 K/mm3 02/27/18 11:45 Myelocytes # 0.0 K/mm3 02/27/18 11:45 Promyelocytes # 0.0 K/mm3 02/27/18 11:45 Blast Cells # 0.0 K/mm3 02/27/18 11:45 WBC Morphology Not Reportable 02/27/18 11:45 Hypersegmented Neuts Not Reportable 02/27/18 11:45 Hyposegmented Neuts Not Reportable 02/27/18 11:45 Hypogranular Neuts Not Reportable 02/27/18 11:45 Smudge Cells Not Reportable 02/27/18 11:45 Toxic Granulation Not Reportable 02/27/18 11:45 Toxic Vacuolation Not Reportable 02/27/18 11:45 Dohle Bodies Not Reportable 02/27/18 11:45 Pelger-Huet Anomaly Not Reportable 02/27/18 11:45 Jose Rods Not Reportable 02/27/18 11:45 Platelet Estimate Cons 02/27/18 11:45 Clumped Platelets Not Reportable 02/27/18 11:45 Plt Clumps, EDTA Not Reportable 02/27/18 11:45 Large Platelets Few 02/27/18 11:45 Giant Platelets Not Reportable 02/27/18 11:45 Platelet Satelliting Not Reportable 02/27/18 11:45 Plt Morphology Comment Not Reportable 02/27/18 11:45 RBC Morphology Not Reportable 02/27/18 11:45 Dimorphic RBCs Not Reportable 02/27/18 11:45 Polychromasia Not Reportable 02/27/18 11:45 Hypochromasia Not Reportable 02/27/18 11:45 Poikilocytosis Not Reportable 02/27/18 11:45 Anisocytosis Few 02/27/18 11:45 Microcytosis Not Reportable 02/27/18 11:45 Macrocytosis Not Reportable 02/27/18 11:45 Spherocytes Not Reportable 02/27/18 11:45 Pappenheimer Bodies Not Reportable 02/27/18 11:45 Sickle Cells Not Reportable 02/27/18 11:45 Target Cells Not Reportable 02/27/18 11:45 Tear Drop Cells Not Reportable 02/27/18 11:45 Ovalocytes Few 02/27/18 11:45 Helmet Cells Not Reportable 02/27/18 11:45 [place] Bodies Not Reportable 02/27/18 11:45 [place] Rings Not Reportable 02/27/18 11:45 Jossue Cells Not Reportable 02/27/18 11:45 Bite Cells Not Reportable 02/27/18 11:45 Crenated Cell Not Reportable 02/27/18 11:45 Elliptocytes Not Reportable 02/27/18 11:45 Acanthocytes (Spur) Not Reportable 02/27/18 11:45 Rouleaux Not Reportable 02/27/18 11:45 Hemoglobin C Crystals Not Reportable 02/27/18 11:45 Schistocytes Not Reportable 02/27/18 11:45 Malaria parasites Not Reportable 02/27/18 11:45 Demetrio Bodies Not Reportable 02/27/18 11:45 Hem Pathologist Commnt No 02/27/18 11:45 Sodium 142 mmol/L (137-145) 02/26/18 04:16 Potassium 3.8 mmol/L (3.6-5.0) 02/26/18 04:16 Chloride 103.2 mmol/L (98-107) 02/26/18 04:16 Carbon Dioxide 26 mmol/L (22-30) 02/26/18 04:16 Anion Gap 17 mmol/L 02/26/18 04:16 BUN 12 mg/dL (9-20) 02/26/18 04:16 Creatinine 0.9 mg/dL (0.8-1.5) 02/26/18 04:16 Estimated GFR > 60 ml/min 02/26/18 04:16 BUN/Creatinine Ratio 13 % 02/26/18 04:16 Glucose 108 mg/dL (75-100) H 02/26/18 04:16 Lactic Acid 1.70 mmol/L (0.7-2.0) 02/23/18 13:38 Calcium 8.8 mg/dL (8.4-10.2) 02/26/18 04:16 Phosphorus 2.90 mg/dL (2.5-4.5) 02/24/18 08:21 Magnesium 1.90 mg/dL (1.7-2.3) 02/24/18 08:21 Total Bilirubin 1.00 mg/dL (0.1-1.2) 02/23/18 09:11 AST 13 units/L (5-40) 02/23/18 09:11 ALT 9 units/L (7-56) 02/23/18 09:11 Alkaline Phosphatase 73 units/L (35-129) 02/23/18 09:11 Total Protein 8.1 g/dL (6.3-8.2) 02/23/18 09:11 Albumin 3.7 g/dL (3.9-5) L 02/23/18 09:11 Albumin/Globulin Ratio 0.8 % 02/23/18 09:11 Lipase 18 units/L (13-60) 02/23/18 09:11 Urine Color Yellow (Yellow) 02/23/18 15:22 Urine Turbidity Clear (Clear) 02/23/18 15:22 Urine pH 6.0 (5.0-7.0) 02/23/18 15:22 Ur Specific [place] 1.048 (1.003-1.030) H 02/23/18 15:22 Urine Protein 30 mg/dl mg/dL (Negative) 02/23/18 15:22 Urine Glucose (UA) Neg mg/dL (Negative) 02/23/18 15:22 Urine Ketones Neg mg/dL (Negative) 02/23/18 15:22 Urine Blood Neg (Negative) 02/23/18 15:22 Urine Nitrite Neg (Negative) 02/23/18 15:22 Urine Bilirubin Neg (Negative) 02/23/18 15:22 Urine Urobilinogen < 2.0 mg/dL (<2.0) 02/23/18 15:22 Ur Leukocyte Esterase Neg (Negative) 02/23/18 15:22 Urine WBC (Auto) 3.0 /HPF (0.0-6.0) 02/23/18 15:22 Urine RBC (Auto) 5.0 /HPF (0.0-6.0) 02/23/18 15:22 Urine Mucus Few /HPF 02/23/18 15:22 Blood Type O POSITIVE 02/23/18 09:11 Antibody Screen Negative 02/23/18 09:11
[2018-02-27 13:08] LABS: Anisocytosis Few; Basophils % (Manual) 0 % (0.0-1.8); Eosinophils % (Manual) 0.5 % (0.0-4.3); Monocytes % (Manual) 5.5 % (0.0-7.3); Total Cells Counted 200
[2018-02-27 13:09] LABS: Large Platelets Few; Ovalocytes Few; Platelet Estimate Cons
--- NOTE | 2018-02-27 15:16 | Progress Note ---
Assessment and Plan - Patient Problems (1) Abdominal pain Current Visit: Yes Status: Acute Qualifiers: Abdominal location: lower abdomen, unspecified Qualified Code(s): R10.30 - Lower abdominal pain, unspecified Plan to address problem: Pt stable. s/p lap appy (02/19/18 - POD#8); s/p IR drainage of pelvic collection ( 02/24/18 - POD#3) - patient looks and feels better today. He feels better even compared to yesterday. HR is better. He is afebrile since the drainage procedure. Bowel movements are daily and getting back to normal. It was more solid this AM. Passing flatus. Had no problems with regular diet. The only thing that concerns me is the increasing WBC. Based on the plan from yesterday, we will get a repeat CT today, possibly add a second Abx depending on the results of the CT, and consult ID tomorrow for Abx management. Time=10min Subjective Date of service: 02/27/18 Patient Reports: Positive: no new complaints, feels better, pain is less, tolerating a regular diet, flatus, bowel movement (getting back to normal), afebrile. Negative: nausea, vomiting Objective Vital Signs - 12hr 02/27/18 02/27/18 02/27/18 04:30 07:09 11:14 Temperature 98.0 F 98.7 F 98.7 F Pulse Rate 64 85 78 Respiratory 20 18 18 Rate Blood Pressure 127/73 136/83 119/72 O2 Sat by Pulse 98 97 98 Oximetry - General physical appearance no distress, no pain, other (sitting up in chair watching TV) - Eyes normal occular movement - Respiratory normal expansion, normal respiratory effort - Abdomen soft, not tender, bowel sounds normal, not distended, not guarding, not rigid, surgical scars (C/D/I), other (minimal serosang drainage in bag) - Integumentary no rash, no growths, no abnormal pigmentation - Neurologic normal coordination, normal sensation - Psychiatric oriented to time, oriented to person, oriented to place, speech is normal, memory intact - Labs 02/27/18 11:45 02/26/18 04:16
--- NOTE | 2018-02-27 16:07 | Event Note ---
Date: 02/27/18 Spoke with mom to give her an update. Waited until now because she was in [place]. She was appreciative of the call and agrees with the plan.
[2018-02-27] MEDS: LACTATED RINGERS 1,000 ML IV SCH (16:14)
--- NOTE | 2018-02-27 20:36 | Cat Scan Report ---
FINAL REPORT EXAM: CT ABDOMEN PELVIS W CON HISTORY: Increasing WBC after abscess drainage TECHNIQUE: CT abdomen and pelvis with intravenous contrast PRIORS: Comparison is dated February 23, 2018 FINDINGS: There is small left pleural effusion. No focal abnormality identified within the liver parenchyma. The spleen demonstrates normal size and attenuation. No pancreatic abnormalities seen. The kidneys demonstrate symmetric contrast enhancement. No evidence of hydronephrosis. The adrenal glands are unremarkable Abdominal aorta is normal in caliber. Prominent central mesenteric lymph nodes are likely reactive.. No signs of free fluid or free air. There is continued small-bowel distention primarily in the upper abdomen. This appears slightly improved since prior exam. moderate amount of stool and gas within the colon. Again identified in the right lower quadrant is a pericolonic collection. There is some surgical suture material seen along the superior aspect of the collection there is internal mottled air. This is slightly larger than on the prior exam measuring approximately 8.1 x 4.7 centimeters. There is a surgical drain present within previously described lower abdominal collection. The central portion of this collection is smaller in size. There are 2 fluid collections present anterior abdomen in the region of the inguinal canals. On the right this measures 2.7 x 2.3 centimeters on the left 2.3 x 1.1 centimeters. No air collection seen within these foci there are mildly thickened enhancing ruano. There is an additional collection to the right of midline just superior to the urinary bladder measuring 4.2 x 4.1 centimeters could be communicating with the central collection however persistent from prior exam. IMPRESSION: Right lower quadrant fluid collection most consistent with abscess unchanged from prior exam Large central collection seen previously within the pelvis is now smaller in size with a pigtail catheter in place Additional smaller pelvic fluid collections suspicious for abscess in the anterior lower pelvis inguinal regions bilaterally. Continued proximal small-bowel distention probable ileus however continued followup recommended.
[2018-02-28] MEDS: TORADOL IV SCH ×5 (00:02→17:53)
[2018-02-28] MEDS: SODIUM CHLORIDE FLUSH SYRINGE 10 ML IV SCH ×2 (00:11→10:00)
[2018-02-28] MEDS: LACTATED RINGERS 1,000 ML IV SCH (04:31)
[2018-02-28] MEDS: ZOSYN/NS 4.5GM/100ML 4.5 GM/100 ML VIAL IV SCH (06:27)
[2018-02-28 07:45] LABS: Basophils % (Auto) 0.2 % (0.0-1.8); Eosinophils # (Auto) 0.2 K/mm3 (0.0-0.4); Hemoglobin 10.1 gm/dl (11.8-15.2); Lymphocytes # (Auto) 1.3 K/mm3 (1.2-5.4); Lymphocytes % (Auto) 6.7 % (13.4-35.0); Mean Corpuscular HGB Conc 34 % (32-34); Mean Corpuscular Hemoglobin 28 pg (28-32); Mean Corpuscular Volume 84 fl (84-94); Monocytes # (Auto) 1.3 K/mm3 (0.0-0.8); Monocytes % (Auto) 6.7 % (0.0-7.3); Platelet Count 331 K/mm3 (140-440); Red Blood Count 3.56 M/mm3 (3.65-5.03); Red Cell Distribution Width 13.9 % (13.2-15.2)
--- NOTE | 2018-02-28 08:54 | Progress Note ---
Assessment and Plan - Patient Problems (1) Postoperative abscess Current Visit: Yes Status: Acute Qualifiers: Encounter type: initial encounter Qualified Code(s): T81.4XXA - Infection following a procedure, initial encounter Plan to address problem: Pt stable. s/p lap appy (02/19/18 - POD#9); s/p IR drainage of pelvic collection ( 02/24/18 - POD#4) - Pt continues to look good. Tolerating diet. WBC is finally better today. CT showed an enlarging collection in the RLQ. I think it would be best to drain this collection prior to going home. Have asked to consider drainage. Have discussed recommendation with patient and mother. Patient was a little sad as he is tired of being in the hospital. I asked for his patience and for him to consider how much better he is compared to when he was admitted. Mother was in complete agreement to proceed. I am hoping that once the drainage is done today, if his labs are better tomorrow, we can consider discharge home tomorrow if medicine and infectious diseases have no other concerns. Time=15min Subjective Date of service: 02/28/18 Patient Reports: Positive: no new complaints, feels better, tolerating a regular diet. Negative: nausea, vomiting Objective Vital Signs - 12hr 02/27/18 02/28/18 23:51 04:36 Temperature 99.0 F 98.2 F Pulse Rate 73 66 Respiratory 16 16 Rate Blood Pressure 121/67 109/59 O2 Sat by Pulse 98 98 Oximetry - General physical appearance no distress, no pain, other - Eyes normal occular movement - Respiratory normal expansion, normal respiratory effort - Abdomen soft, not tender, not distended, not guarding, not rigid, surgical scars (C/D/I) - Psychiatric oriented to time, oriented to person, oriented to place, speech is normal, memory intact - Labs 02/28/18 06:55 02/26/18 04:16
--- NOTE | 2018-02-28 10:39 | Consultation ---
History of Present Illness - Reason for Consult Consult date: 02/28/18 intraabdominal collection Requesting physician: BETTINA PARRISH - History of Present Illness 17 y/o male with no medical history who underwent lap appendectomy on 02/19/18 ; readmitted on 02/23/18 due to worsening abdominal pain, nausea, vomiting. Abd pain was 7/10 on the RLQ and no radiation, he also had diarrhea. Reports subjective fever. Denies cough, SOB, urinary symptoms. In the ED, temp 98.5-->102.3, HR 105, R 20, BP 148/98. WBC 9.4. Hg 13.9. Plat 319. Creat 0.9. CT abd showed RLQ collection 5.6x3.9 and another collection 10x7 cm. Patient underwent IR drainage of pelvic collection on 02/24/18 IR cultures +ESBL E coli. Repeat CT showed an enlarging collection in the RLQ. Microbiology: Blood cultures: 02/23 ngtd Wound cultures: IR drainage 02/24 ESBL E coli Current Antimicrobials: Zosyn Previous Antimicrobials: Past History Past Medical History: No medical history Past Surgical History: appendectomy Social history: no significant social history Family history: no significant family history Medications and Allergies Allergies Allergy/AdvReac Type Severity Reaction Status Date / Time No Known Allergies Allergy Verified 02/23/18 09:06 Home Medications Medication Instructions Recorded Confirmed Last Taken Type No Known Home Medications [No 02/19/18 02/23/18 Unknown History Reported Home Medications] Active Meds: Active Medications Acetaminophen (Tylenol) 650 mg PO Q4H PRN PRN Reason: Pain MILD(1-3)/Fever >100.5/JACKSON Last Admin: 02/26/18 14:37 Dose: 650 mg Acetaminophen/Hydrocodone Bitart ([place] 5/325) 2 each PO Q6H PRN PRN Reason: Pain, Moderate (4-6) Hydromorphone HCl (Dilaudid) 1 mg IV Q3H PRN PRN Reason: Pain , Severe (7-10) Last Admin: 02/26/18 20:22 Dose: 1 mg Lactated Ringer's (Lactated Ringers) 1,000 mls @ 125 mls/hr IV DIRECT VIRAJ Stop: 02/28/18 21:59 Last Admin: 02/28/18 04:31 Dose: 125 mls/hr Meropenem 1,000 mg/ Sodium (Chloride) 100 mls @ 100 mls/hr IV Q8HR VIRAJ; Protocol Ketorolac Tromethamine (Toradol) 30 mg IV Q6HR VIRAJ Stop: 03/03/18 17:59 Last Admin: 02/28/18 06:27 Dose: 30 mg Ondansetron HCl (Zofran) 4 mg IV Q3H PRN PRN Reason: Nausea And Vomiting Last Admin: 02/24/18 10:40 Dose: 4 mg Sodium Chloride (Sodium Chloride Flush Syringe 10 Ml) 10 ml IV BID VIRAJ Last Admin: 02/28/18 00:11 Dose: Not Given Sodium Chloride (Sodium Chloride Flush Syringe 10 Ml) 10 ml IV PRN PRN PRN Reason: LINE FLUSH Review of Systems All systems: negative (as per HPI) Physical Examination - Physical Exam Narrative exam: General appearance: Alert in NAD, conversant Eyes: anicteric sclerae, moist conjunctivae; no lid-lag; PERRLA HENT: Atraumatic; oropharynx clear with moist mucous membranes and no mucosal ulcerations/no oral thrush; normal hard and soft palate. Normal external ears. Neck: Trachea midline; supple, no thyromegaly or lymphadenopathy Lungs: CTA, with normal respiratory effort and no intercostal retractions CV: RRR, no murmurs Abdomen: Soft, TTP in RLQ no rebound Extremities: No peripheral edema or extremity lymphadenopathy Skin: right gluteal drain w purulence Psych: Appropriate affect, alert and oriented to person, place and time. Neuro: alert and oriented x 3. Moving all extermities Lines: No CVL / PICC - Constitutional Vitals: Vital Signs Temp Pulse Resp BP Pulse Ox 98.2 F 66 16 109/59 98 02/28/18 04:36 02/28/18 04:36 02/28/18 04:36 02/28/18 04:36 02/28/18 04:36 Temperature -Last 24 Hours Temperature 98.2 F Temperature 99.0 F Temperature 98.7 F Temperature 97.9 F Temperature 97.8 F Temperature 98.7 F Results - Labs CBC & Chem 7: 02/28/18 06:55 02/26/18 04:16 Labs: Abnormal lab results 02/27/18 02/28/18 Range/Units 11:45 06:55 WBC 23.2 H 19.0 H (4.5-11.0) K/mm3 RBC 3.51 L 3.56 L (3.65-5.03) M/mm3 Hgb 10.1 L 10.1 L (11.8-15.2) gm/dl Hct 29.8 L 30.0 L (35.5-45.6) % Lymph % (Auto) 6.7 L (13.4-35.0) % [place] # 1.3 H (0.0-0.8) K/mm3 Seg Neutrophils % 85.4 H (40.0-70.0) % Seg Neuts % (Manual) 90.0 H (40.0-70.0) % Lymphocytes % (Manual) 4.0 L (13.4-35.0) % Seg Neutrophils # 16.2 H (1.8-7.7) K/mm3 Seg Neutrophils # Man 20.9 H (1.8-7.7) K/mm3 Lymphocytes # (Manual) 0.9 L (1.2-5.4) K/mm3 Monocytes # (Manual) 1.3 H (0.0-0.8) K/mm3 Assessment and Plan Assessment: 1) Sepsis: Present on admission, manifested by fever, tachycardia. Etiology most likely intra-abdominal abscesses. 2) Intra-abdominal abscesses: 3) Acute appendicitis: -s/p lap appendectomy on 02/19/18 -CT abd showed RLQ collection 5.6x3.9 and another collection 10x7 cm. -s/p IR drainage of pelvic collection on 02/24/18 IR cultures +ESBL E coli. -Repeat CT showed an enlarging collection in the RLQ. Plan: -follow-up blood cultures -agree with further IR drainage -CRP -stop zosyn -start meropenem 1 g IV q8h -contact isolation -upon discharge will do ertapenem 1 g IV q day total 14 days. Order sent to my office for approval. It was approved $139.83 per day - case management social worker to determine outpatient coverage - pt has no insurance Thank you for your consultation, will follow up with you. Milagros Michael MD Infectious Diseases Specialist [facility] ([facility]) M [phone] O [phone]
[2018-02-28] MEDS ORDERED: ZOSYN/NS 4.5GM/100ML 4.5 GM/100 ML VIAL IV SCH (11:00)
[2018-02-28] MEDS ORDERED: XYLOCAINE 1%/ EPI 1:100,000 INFILTRATI ONE (13:03)
[2018-02-28] MEDS ORDERED: SUBLIMAZE IV ONE (13:09)
[2018-02-28] MEDS ORDERED: VERSED IV ONE (13:09)
--- NOTE | 2018-02-28 13:11 | Progress Note ---
Assessment and Plan Sepsis due to intraabdominal abscess: cont abx, Cx growing ESBL - Placed on zosyn, now on meropenem 1 g IV q8h -contact isolation -upon discharge will need ertapenem 1 g IV q day total 14 days. logistics solution manager to determine outpatient coverage - pt has no insurance /Postoperative abscess s/p CT guided drainage of the pelvic fluid collection on 02/24/18 s/p [address] guided drainage of the RLQ fluid collection on 02/28/18 / Small bowel obstruction off NG tube suction for now, IV fluids, monitor BMP tolerating regular diet / DVT prophylaxis Lovenox 40 mg subcutaneous daily Microbiology 02/23/18 13:38 Peripheral/Venous Blood Culture - Preliminary NO GROWTH AFTER 4 DAYS 02/23/18 13:38 Peripheral/Venous Blood Culture - Preliminary NO GROWTH AFTER 4 DAYS 02/24/18 16:15 Abdomen Surgical Culture - Final Escherichia Coli (ESBL) Brief history: 17 y/o male with no medical history who underwent lap appendectomy on 02/19/18 ; readmitted on 02/23/18 due to worsening abdominal pain, nausea, vomiting. In the ED, CT abd showed RLQ collection 5.6x3.9 and another collection 10x7 cm. Patient underwent IR drainage of pelvic collection on 02/24/18. IR cultures + ESBL E coli. Repeat CT showed an enlarging collection in the RLQ. CT abdomen/pelvis: Right lower quadrant fluid collection most consistent with abscess unchanged from prior exam Large central collection seen previously within the pelvis is now smaller in size with a pigtail catheter in place Additional smaller pelvic fluid collections suspicious for abscess in the anterior lower pelvis inguinal regions bilaterally. Continued proximal small-bowel distention probable ileus however continued followup recommended. Subjective Date of service: 02/28/18 Principal diagnosis: intra-abdominal abscess Interval history: Patient seen and examined s/p CT guided pelvic abscess drainage today states abdominal pain improved Objective - Constitutional Vitals: Vital Signs - 12hr 02/28/18 02/28/18 02/28/18 04:36 07:24 11:54 Temperature 98.2 F 97.5 F L 98.6 F Pulse Rate 66 72 72 Respiratory 16 18 18 Rate Blood Pressure 109/59 132/69 126/71 O2 Sat by Pulse 98 97 99 Oximetry - Labs CBC & Chem 7: 02/28/18 06:55 02/26/18 04:16 Labs: Abnormal lab results 02/28/18 02/28/18 Range/Units 06:55 10:29 WBC 19.0 H (4.5-11.0) K/mm3 RBC 3.56 L (3.65-5.03) M/mm3 Hgb 10.1 L (11.8-15.2) gm/dl Hct 30.0 L (35.5-45.6) % Lymph % (Auto) 6.7 L (13.4-35.0) % [place] # 1.3 H (0.0-0.8) K/mm3 Seg Neutrophils % 85.4 H (40.0-70.0) % Seg Neutrophils # 16.2 H (1.8-7.7) K/mm3 C-Reactive Protein 16.50 H (0.00-1.30) mg/dL
[2018-02-28] MEDS ORDERED: XYLOCAINE 2% INFILTRATI ONE (14:36)
[2018-02-28] MEDS ORDERED: SUBLIMAZE ONE (14:36)
[2018-02-28] MEDS ORDERED: HEPARIN 10,000 UNITS/10 ML ONE (14:36)
[2018-02-28] MEDS ORDERED: VERSED ONE (14:36)
[2018-02-28] MEDS ORDERED: HEPARIN/NS 5000 UNIT/500ML(CATH LAB) 500 ML IR ONE (14:36)
[2018-02-28] MEDS ORDERED: NACL 0.9% 500 ML 500 ML ONE (14:41)
--- NOTE | 2018-02-28 14:44 | Operative Report ---
Operative Report Operative Report: Exam: PICC line placement Clinical indication: Bacteremia, PICC line for long-term antibiotics Date: 02/28/2018 Procedure: Following an expiration of the risks, benefits and alternatives; written informed consent was obtained. The patient was brought to the angiographic suite and placed in supine position on the examination table. Initial ultrasound evaluation of his right arm demonstrated a patent right basilic vein. The right upper arm was prepped and draped in the usual sterile fashion. 1% lidocaine was used for anesthesia. Under ultrasound guidance, the right basilic vein was cannulated with a 7 cm 21- gauge needle. A 0.018 guidewire was advanced into the IVC under fluoroscopy to document intravenous positioning. The needle was removed and a 5.5 [place] peel- away sheath placed over the guidewire. Following standard guidewire measurements, the guidewire was removed and this access temporarily capped. The PICC was cut to length and inserted through the peel-away sheath. The peel- away sheath was removed and the PICC positioned with the tip in the proximal right atrium. Both ports flushed and aspirated easily and were then locked with sterile saline. The catheter was securely fastened of the skin surface using a StatLock device and a sterile dressing applied. Patient tolerated the procedure well. There were no immediate post procedure complications. Conscious sedation was performed under the guidance of radiologic nursing. Continuous cardio pulmonary monitoring was utilized. Impression: 1) Ultrasound and fluoroscopic guided placement of PICC line via the right basilic vein.
--- NOTE | 2018-02-28 14:53 | Cat Scan Report ---
Exam: CT-guided placement of drain in right lower quadrant Clinical indication: Patient with history of intra-abdominal abscess and elevated white count Date: 02/28/2018 Procedure: Following an examination of the risks, benefits and alternatives; written informed consent was obtained. The patient was brought to the CT suite and placed in supine position on the gantry. Initial research leader images of the lower abdomen and pelvis were performed an appropriate access site was chosen for the right lower quadrant abscess. The patient's right lower abdomen was prepped and draped in the usual sterile fashion. 1% lidocaine was used for anesthesia. Using intermittent CT guidance, a 10 cm 18-gauge needle was advanced into the central aspect of the fluid collection. There was prompt return of purulent fluid. A 0.035 guidewire was then advanced through the needle and coiled within the fluid collection. The needle was removed and following serial dilation, an 8 Hungarian pigtail catheter was advanced over the guidewire and positioned with the central aspect of the pigtail within the central aspect of the fluid collection. A total of 60 mL's of purulent fluid was then aspirated. A sample sent for laboratory analysis. The catheter was securely fastened to the skin surface using 0 silk suture and a StatLock device. The catheter was then placed to [place] bulb drainage. Sterile dressings were then applied. The patient was then rolled off and patient's indwelling right gluteal catheter was removed. A sterile dressing was applied. The patient tolerated the procedure well. There were no immediate post procedure complications. Conscious sedation was performed of the guidance of radiologic nursing. Continuous cardiopulmonary monitoring was utilized. Impression: 1) CT-guided placement of 8 Hungarian drainage catheter in right lower quadrant abscess with 60 mL's of purulent fluid aspirated.
[2018-02-28] MEDS: DILAUDID IV PRN ×2 (16:00→21:46)
[2018-02-28] MEDS: MERREM 1,000 MG in NACL 0.9% 100 ML IV SCH ×2 (16:17→21:35)
--- NOTE | 2018-02-28 17:55 | Event Note ---
Date: 02/28/18 Routine check - pt reports that he is doing well. Only has a little bit of soreness at the drain site. Family pleased. No needs at this time.
[2018-03-01] MEDS: TORADOL IV SCH ×2 (00:55→06:02)
[2018-03-01] MEDS: SODIUM CHLORIDE FLUSH SYRINGE 10 ML IV SCH (00:57)
[2018-03-01] MEDS: DILAUDID IV PRN (02:44)
[2018-03-01] MEDS: MERREM 1,000 MG in NACL 0.9% 100 ML IV SCH (05:20)
[2018-03-01 05:32] LABS: Basophils % (Auto) 0.3 % (0.0-1.8); Eosinophils # (Auto) 0.2 K/mm3 (0.0-0.4); Eosinophils % (Auto) 1.4 % (0.0-4.3); Hematocrit 30.3 % (35.5-45.6); Hemoglobin 10.2 gm/dl (11.8-15.2); Lymphocytes # (Auto) 1.7 K/mm3 (1.2-5.4); Lymphocytes % (Auto) 11.1 % (13.4-35.0); Mean Corpuscular HGB Conc 34 % (32-34); Mean Corpuscular Hemoglobin 28 pg (28-32); Mean Corpuscular Volume 85 fl (84-94); Monocytes # (Auto) 1.4 K/mm3 (0.0-0.8); Monocytes % (Auto) 9.1 % (0.0-7.3); Platelet Count 375 K/mm3 (140-440); Red Blood Count 3.59 M/mm3 (3.65-5.03); Red Cell Distribution Width 14.3 % (13.2-15.2)
[2018-03-01 06:15] LABS: BUN/Creatinine Ratio 16; Blood Urea Nitrogen 11 mg/dL (9-20); Calcium 8.1 mg/dL (8.4-10.2)
[2018-03-01 06:16] LABS: Hemolysis Index 6
--- NOTE | 2018-03-01 09:06 | Progress Note ---
Assessment and Plan - Patient Problems (1) Postoperative abscess Current Visit: Yes Status: Acute Qualifiers: Encounter type: initial encounter Qualified Code(s): T81.4XXA - Infection following a procedure, initial encounter Plan to address problem: Pt stable. s/p lap appy (02/19/18 - POD#10); s/p IR drainage of pelvic collection (02/24/18 - POD#5); s/p IR drainage of RLQ collection (02/28/18 - POD#1) - Pt continues to look very good. He reports that what he thought was incisional pain was in fact the discomfort from the abscess. Now, he has much less tenderness in the RLQ. WBC is down today. He looks good. Ok to d/c home from my perspective once the drain teaching is done, HH is set-up and IV Abx is arranged. As they did not want to see the original operating surgeon, he can f/u with me in 2 weeks. Please call with questions. Time=10min Subjective Date of service: 03/01/18 Patient Reports: Positive: no new complaints, feels better, pain is less, tolerating a regular diet. Negative: nausea, vomiting Objective Vital Signs - 12hr 02/28/18 02/28/18 02/28/18 21:46 22:00 22:16 Temperature Pulse Rate Pulse Rate [ 78 Left Radial] Respiratory 17 17 Rate Respiratory 16 Rate [Abdomen] Blood Pressure Blood Pressure [Right] O2 Sat by Pulse 98 Oximetry 02/28/18 03/01/18 03/01/18 23:47 00:55 02:44 Temperature 97.9 F Pulse Rate 80 Pulse Rate [ Left Radial] Respiratory 14 17 17 Rate Respiratory Rate [Abdomen] Blood Pressure 117/71 Blood Pressure [Right] O2 Sat by Pulse 98 Oximetry 03/01/18 03/01/18 03/01/18 03:14 04:11 06:02 Temperature 98.6 F Pulse Rate 79 Pulse Rate [ Left Radial] Respiratory 17 15 17 Rate Respiratory Rate [Abdomen] Blood Pressure 126/63 Blood Pressure [Right] O2 Sat by Pulse 98 Oximetry 03/01/18 03/01/18 06:32 07:30 Temperature 98.4 F Pulse Rate 70 Pulse Rate [ Left Radial] Respiratory 17 18 Rate Respiratory Rate [Abdomen] Blood Pressure Blood Pressure 123/69 [Right] O2 Sat by Pulse 99 Oximetry - General physical appearance no distress, no pain - Eyes normal occular movement - Respiratory normal expansion, normal respiratory effort - Abdomen soft, not tender, not distended, not guarding, not rigid, surgical scars (C/D/I) , other (drain output - slightly thick, brownish fluid. ) - Psychiatric oriented to time, oriented to person, oriented to place, speech is normal, memory intact - Labs 03/01/18 04:37 03/01/18 04:37 Diabetes panel 03/01/18 Range/Units 04:37 Sodium 139 (137-145) mmol/L Potassium 4.1 (3.6-5.0) mmol/L Chloride 102.2 (98-107) mmol/L Carbon Dioxide 25 (22-30) mmol/L BUN 11 (9-20) mg/dL Creatinine 0.7 L (0.8-1.5) mg/dL Glucose 111 H (75-100) mg/dL Calcium 8.1 L (8.4-10.2) mg/dL Calcium panel 03/01/18 Range/Units 04:37 Calcium 8.1 L (8.4-10.2) mg/dL Pituitary panel 03/01/18 Range/Units 04:37 Sodium 139 (137-145) mmol/L Potassium 4.1 (3.6-5.0) mmol/L Chloride 102.2 (98-107) mmol/L Carbon Dioxide 25 (22-30) mmol/L BUN 11 (9-20) mg/dL Creatinine 0.7 L (0.8-1.5) mg/dL Glucose 111 H (75-100) mg/dL Calcium 8.1 L (8.4-10.2) mg/dL Adrenal panel 03/01/18 Range/Units 04:37 Sodium 139 (137-145) mmol/L Potassium 4.1 (3.6-5.0) mmol/L Chloride 102.2 (98-107) mmol/L Carbon Dioxide 25 (22-30) mmol/L BUN 11 (9-20) mg/dL Creatinine 0.7 L (0.8-1.5) mg/dL Glucose 111 H (75-100) mg/dL Calcium 8.1 L (8.4-10.2) mg/dL
--- NOTE | 2018-03-01 12:00 | Discharge Summary ---
Providers - Providers Date of Admission: 02/23/18 15:03 Date of discharge: 03/01/18 Attending physician: GHADA LOVE 02/23/18 15:03 Consult to Physician [CONS] Stat Comment: Consulting Provider: KEO CHO Physician Instructions: Reason For Exam: abscess/small bowel obstruction 02/24/18 09:46 Consult to Interventional Radiology [CONS] Urgent Consulting Provider: PERLA PENNINGTON Reason For Exam: Drainage of pelvic fluid and RLQ fluid Place consult to:: Dr. Pennington Notified:: Dr. Pennington Was contact made?: Yes If yes, spoke with:: Dr. pennington Time called:: 09:32 Comment:: Please drain pelvic fluid and aspirate/drain RLQ fluid collection 02/28/18 07:00 Consult to Physician [CONS] Routine Comment: Consulting Provider: KEO CHO Physician Instructions: Reason For Exam: Intra-abdominal abscess; Abx management 02/28/18 08:10 Consult to Interventional Radiology [CONS] Urgent Consulting Provider: PERLA RAYA Reason For Exam: RLQ abscess drainage Place consult to:: Dr. Raya Notified:: Dr. Raya Was contact made?: Yes If yes, spoke with:: Dr. Raya Time called:: 08:00 Primary care physician: INVENTORY CONTROL COORDINATOR Hospitalization Condition: Stable Hospital course: Brief history: 17 y/o male with no medical history who underwent lap appendectomy on 02/19/18 ; readmitted on 02/23/18 due to worsening abdominal pain, nausea, vomiting. In the ED, CT abd showed RLQ collection 5.6x3.9 and another collection 10x7 cm. Patient underwent IR drainage of pelvic collection on 02/24/18. IR cultures + ESBL E coli. Repeat CT showed an enlarging collection in the RLQ which was again drained by IR on 02/28/18. ID was consulted and recommended ertapenem 1 g IV q day total 14 days. Patient was then discharged home in stable condition with outpt follow up with Dr Perry. Discharge diagnosis and management: Sepsis due to intraabdominal abscess: cont abx, Cx growing ESBL - Placed on zosyn, now on meropenem 1 g IV q8h -contact isolation -upon discharge will need ertapenem 1 g IV q day total 14 days. biomass plant manager to determine outpatient coverage - pt has no insurance /Postoperative abscess s/p CT guided drainage of the pelvic fluid collection on 02/24/18 s/p CT guided drainage of the RLQ fluid collection on 02/28/18 / Small bowel obstruction off NG tube suction for now, IV fluids, monitor BMP tolerating regular diet / DVT prophylaxis Lovenox 40 mg subcutaneous daily Microbiology 02/23/18 13:38 Peripheral/Venous Blood Culture - Preliminary NO GROWTH AFTER 4 DAYS 02/23/18 13:38 Peripheral/Venous Blood Culture - Preliminary NO GROWTH AFTER 4 DAYS 02/24/18 16:15 Abdomen Surgical Culture - Final Escherichia Coli (ESBL) CT abdomen/pelvis: 02/27/18 Right lower quadrant fluid collection most consistent with abscess unchanged from prior exam Large central collection seen previously within the pelvis is now smaller in size with a pigtail catheter in place Additional smaller pelvic fluid collections suspicious for abscess in the anterior lower pelvis inguinal regions bilaterally. Continued proximal small-bowel distention probable ileus however continued followup recommended. 02/23/18: Recent appendectomy changes are identified. There appear to be at least 2 collections in the right lower quadrant and pelvis as described which may represent postoperative abscesses. Consider repeat examination with oral contrast to further differentiate these structures from bowel loops. Dilated loops of proximal small bowel have developed suggesting partial small bowel obstruction. Ascites. Disposition: [id number] HOME UND[facility] Time spent for discharge: 34 minutes Core Measure Documentation - Palliative Care Palliative Care/ Comfort Measures: Not Applicable - Core Measures Any of the following diagnoses?: none Exam - Physical Exam Narrative exam: General appearance: Present: mild distress - EENT Eyes: PERRL, EOM intact ENT: hearing intact, clear oral mucosa Ears: bilateral: normal - Neck Neck: supple, normal ROM - Respiratory Respiratory effort: normal Respiratory: bilateral: CTA - Cardiovascular Rhythm: regular Heart Sounds: Present: S1 & S2. Absent: gallop, rub Extremities: pulses intact, No edema, normal color, Full ROM - Gastrointestinal General gastrointestinal: Present: soft, non-distended, normal bowel sounds, other (drainage in place) - Integumentary Integumentary: clear, warm, dry - Musculoskeletal Musculoskeletal: 1, strength equal bilaterally - Neurologic Neurologic: moves all extremities - Psychiatric Psychiatric: memory intact, appropriate mood/affect, intact judgment & insight - Constitutional Vitals: Temp Pulse Resp BP Pulse Ox 98.4 F 70 18 123/69 99 03/01/18 07:30 03/01/18 07:30 03/01/18 10:03 03/01/18 07:30 03/01/18 10:03 Plan Activity: advance as tolerated Weight Bearing Status: Non-Weight Bearing Diet: regular Additional Instructions: f/u with Dr Perry in one week. Follow up with: PRIMARY CARE, [Primary Care Provider] - 3-5 Days
[2018-03-01 12:14] VITALS: BP 123/71
--- NOTE | 2018-03-01 13:39 | Progress Note ---
Assessment and Plan Assessment: 1) Sepsis: fever resolved, leukocytosis better. Etiology most likely intra- abdominal abscesses. 2) Intra-abdominal abscesses from Acute appendicitis: -s/p lap appendectomy on 02/19/18 -CT abd showed RLQ collection 5.6x3.9 and another collection 10x7 cm. -s/p IR drainage of pelvic collection on 02/24/18 IR cultures +ESBL E coli. -Repeat CT showed an enlarging collection in the RLQ. -drain placement 03/31 -CRP=16 Plan: -stop meropenem 1 g IV q8h -start ertapenem 1 g x 1 (before d/c) -contact isolation -upon discharge will do ertapenem 1 g IV q day total 14 days. Order sent to my office for approval. It was approved $139.83 per day - shelter case manager to determine outpatient coverage - pt has no insurance ID clinic f/u in 1 week Thank you for your consultation, will follow up with you. Milagros Michael MD Infectious Diseases Specialist [facility] ([facility]) M [phone] O [phone] Subjective Date of service: 03/01/18 Principal diagnosis: intra-abdominal abscess Interval history: Feels better, no fever, had a second drain placed yesterday draining purulence Microbiology: Blood cultures: 02/23 ngtd Wound cultures: IR drainage 02/24 ESBL E coli Current Antimicrobials: meropenem Objective - Exam Narrative Exam: General appearance: Alert in NAD, conversant Eyes: anicteric sclerae, moist conjunctivae; no lid-lag; PERRLA HENT: Atraumatic; oropharynx clear with moist mucous membranes and no mucosal ulcerations/no oral thrush; normal hard and soft palate. Normal external ears. Neck: Trachea midline; supple, no thyromegaly or lymphadenopathy Lungs: CTA, with normal respiratory effort and no intercostal retractions CV: RRR, no murmurs Abdomen: Soft, TTP in RLQ no rebound, right gluteal drain w purulencem, RLQ drain with copious purulence Extremities: No peripheral edema or extremity lymphadenopathy Skin: no rash Psych: Appropriate affect, alert and oriented to person, place and time. Neuro: alert and oriented x 3. Moving all extermities Lines: No CVL / PICC - Constitutional Vitals: Vital Signs Temp Pulse Resp BP Pulse Ox 98.4 F 83 18 123/71 99 03/01/18 11:50 03/01/18 11:50 03/01/18 11:50 03/01/18 11:50 03/01/18 11:50 Temperature -Last 24 Hours Temperature 98.4 F Temperature 98.4 F Temperature 98.6 F Temperature 97.9 F Temperature 98.5 F Temperature 97.8 F - Labs CBC & Chem 7: 03/01/18 04:37 03/01/18 04:37 Labs: Abnormal lab results 03/01/18 03/01/18 Range/Units 04:37 04:37 WBC 15.4 H (4.5-11.0) K/mm3 RBC 3.59 L (3.65-5.03) M/mm3 Hgb 10.2 L (11.8-15.2) gm/dl Hct 30.3 L (35.5-45.6) % Lymph % (Auto) 11.1 L (13.4-35.0) % [place] % (Auto) 9.1 H (0.0-7.3) % [place] # 1.4 H (0.0-0.8) K/mm3 Seg Neutrophils % 78.1 H (40.0-70.0) % Seg Neutrophils # 12.0 H (1.8-7.7) K/mm3 Creatinine 0.7 L (0.8-1.5) mg/dL Glucose 111 H (75-100) mg/dL Calcium 8.1 L (8.4-10.2) mg/dL
[2018-03-01] MEDS ORDERED: MERREM 1,000 MG in NACL 0.9% 100 ML IV SCH (15:00)
== END 2018-03-01 14:53 | disposition home health service (06) | DRG 862 ==
LOC: ED 08:52 → 3B-SURG 15:03
PROVIDERS: ADMIT Internal Medicine; ATTEND Internal Medicine
PROC: 0D9670Z Drainage of Stomach with Drainage Device, Via Natural or Artificial Opening (ICD-10-PCS; 2018-02-23)
PROC: 0W9J30Z Drainage of Pelvic Cavity with Drainage Device, Percutaneous Approach (ICD-10-PCS; 2018-02-24)
PROC: 02H633Z Insertion of Infusion Device into Right Atrium, Percutaneous Approach (ICD-10-PCS; principal; 2018-02-28)
PROC: B244ZZZ Ultrasonography of Right Heart (ICD-10-PCS; 2018-02-28)
PROC: B2141ZZ Fluoroscopy of Right Heart using Low Osmolar Contrast (ICD-10-PCS; 2018-02-28)
PROC: 0W9F30Z Drainage of Abdominal Wall with Drainage Device, Percutaneous Approach (ICD-10-PCS; 2018-02-28)
DX: T81.4XXA Infection following a procedure, initial encounter (principal); A41.9 Sepsis, unspecified organism; K65.1 Peritoneal abscess; K56.609 Unspecified intestinal obstruction, unspecified as to partial versus complete obstruction; E86.0 Dehydration; Y83.8 Other surgical procedures as the cause of abnormal reaction of the patient, or of later complication, without mention of misadventure at the time of the procedure; Z90.49 Acquired absence of other specified parts of digestive tract; Y92.89 Other specified places as the place of occurrence of the external cause
CPT/HCPCS: 10160; 36415; 36569; 74177; 77012; 80048; 80053; 81001; 82140; 83690; 83735; 84100; 85007; 85025; 86140; 86850; 86900; 86901; 87040; 87076; 87116; 87186; C1751; C1769; C9113; J1170; J1644; J1885; J2185; J2250; J2270; J2405; J2543; J3010; J7030; J7040; J7042; J7120; Q9967